=== PATIENT | female | born 1930 | race Caucasian/White ===

== ENCOUNTER 2018-04-28 11:53 | Inpatient (IN) | payer MEDICARE, OTHER ==
[2018-04-28] MEDS ORDERED: Metoprolol Tartrate 5 MG/5 ML VIAL ONE (12:57)
[2018-04-28 13:33] LABS: Mean Corpuscular HGB CONC 31.5 g/dL (32.0-36.0); Mean Corpuscular Hemoglobin 30.9 pg (27.0-31.0); Mean Corpuscular Volume 98.2 fL (78.0-98.0); Platelet Count 200 thou/uL (130-400); RBC Distribution Width 12.6 % (11.5-14.5); Red Blood Cell (RBC) Count 3.55 mill/uL (4.20-5.40)
[2018-04-28 13:52] LABS: Band 17 % (5-11); Lymphocytes 1 % (21-51); MDiff Complete? YES; Monocytes 7 % (0-10); Neutrophil 74 % (42-75); Nucleated RBC 1 % (0); Ovalocytes SLIGHT = 2-5 cells (100X) (0-1/hpf); PLT Morphology Comment Appears Adequate; Polychromasia SLIGHT = 2-3 cells (100X) (0-2/hpf)
[2018-04-28 13:55] LABS: ALT (SGPT) 8 U/L (8-55); AST (SGOT) 16 U/L (5-34); Albumin 3.3 g/dL (3.4-4.8); Alkaline Phosphatase 69 U/L (40-150); Anion Gap 13 mmol/L (10-20); BUN (Urea Nitrogen) 38 mg/dL (9.8-20.1); Bilirubin, Total 0.8 mg/dL (0.2-1.2); CK (CPK) 97 U/L (29-168); Calc. Creatinine Clearance 0 mL/min (70-130); Calcium 8.6 mg/dL (7.8-10.44); Carbon Dioxide 21 mmol/L (23-31); Chloride 100 mmol/L (98-107); Estimated GFR-MDRD 23; Globulin 2.9 g/dL (2.4-3.5); Glucose 131 mg/dL (83-110); Potassium 3.8 mmol/L (3.5-5.1); Protein, Total 6.2 g/dL (6.0-8.3); Sodium 130 mmol/L (136-145)
[2018-04-28 13:59] LABS: CKMB 1.6 ng/mL (0-6.6); Troponin I Less than 0.010 ng/mL (< 0.028)
--- NOTE | 2018-04-28 14:27 | RAD ---
CHEST 1 VIEW: HISTORY: Shortness of breath. COMPARISON: None. FINDINGS: Atherosclerosis of the aorta. Normal cardiac silhouette. There is elevation of the right hemidiaphr agm likely due to decreased lung volume. Superimposed pneumonia cannot be excluded. No pneumothorax or osseous abnormalities. IMPRESSION: 1. Elevation of the right hemidiaphragm likely due to right lower lobe pneumonia. 2. Atherosclerosis. POS: [facility]
[2018-04-28] MEDS ORDERED: Enoxaparin Sodium 80 MG/0.8 ML SYRINGE ONE (16:28)
[2018-04-28 17:16] LABS: Troponin I Less than 0.010 ng/mL (< 0.028)
[2018-04-28] MEDS ORDERED: Ondansetron ODT 4 MG TAB PO PRN (20:07)
[2018-04-28] MEDS ORDERED: Acetaminophen 500 MG TAB PO PRN (20:07)
[2018-04-28] MEDS ORDERED: Carvedilol 6.25 MG TAB PO SCH (20:15)
[2018-04-28 20:24] LABS: Troponin I 0.011 ng/mL (< 0.028)
[2018-04-28] MEDS ORDERED: Azithromycin 500 MG in Sodium Chloride 0.9% 250 ML 250 ML IVPB SCH (22:00)
[2018-04-28] MEDS: Sodium Chloride 0.9% 1,000 ML IV SCH (22:01)
[2018-04-28] MEDS: cefTRIAXone\\ROCEPHIN 2 GM in Sodium Chloride 0.9% 100 ML IVPB SCH (22:03)
[2018-04-28] MEDS: Famotidine 20 MG TAB PO SCH (22:03)
[2018-04-28 23:44] LABS: Bilirubin Small (Negative); Blood, Urine Trace (Negative); Clarity TURBID (Clear); Glucose, Urine (Dipstick) 100 mg/dL (Negative); Leukocyte Moderate (Negative); Nitrite Negative (Negative); Protein, Urine (Dipstick) 30 mg/dL (Neg-Trace); Specific Gravity, Urine 1.018 (1.002-1.036)
[2018-04-28 23:47] LABS: Bacteria/HPF None Seen HPF (None Seen); Squamous Epithelial 21-50 HPF (0-3)
[2018-04-28 23:48] LABS: Pathc Cast-AUWi Flag 15.11 (0-2.49); Yeast-AUWi Flag 88.8 (0-25.0)
[2018-04-28 23:58] LABS: Hyaline Casts/LPF 0-3 HYALINE CAST LPF (0-3 Hyaline); Other Casts/LPF None Seen LPF (0-3 Hyaline); Oval Fat Bodies/HPF None Seen HPF (None Seen); RBC/HPF 0-3 HPF (0-3); Sperm/HPF None Seen HPF (None Seen); Transitional Epithelial NONE SEEN HPF (0-3); Trichomonas/HPF None Seen HPF (None Seen); Yeast-All Forms None Seen HPF (None Seen)
[2018-04-29 00:49] LABS: Lactic Acid 1.5 mmol/L (0.5-2.2)
--- NOTE | 2018-04-29 01:31 | HP ---
DATE OF ADMISSION: 04/28/2018 PRIMARY CARE PHYSICIAN: Bia beatty. CHIEF COMPLAINT: General weakness. HISTORY OF PRESENT ILLNESS: This is an 88-year-old female, who presents to [facility] Emergency Department accompanied by her daughter, who provides a portion of the history. The romero orellana apparently was noted with worsening lower extremity weakness and difficulty ambulating as quinn elliott normally ambulates with the use of a rolling walker at baseline. The daughter noticed decreased a ppetite, chills without documented fever and increasing weakness. The patient was noted with increas ed respiratory rate at home with mild cough. The patient with a known history of asthma according to the daughter on home metered-dose inhalers. The patient apparently arrived to the [facility] in the last week in preparation for residing in the area over the next 6 months. The quinn elliott states she has received the pneumonia vaccination in the last 5 years, but has not received the fl u vaccination for this season. The patient denies any specific chronic lung conditions other than as thma, taking metered dose inhalers. The patient denies any specific exposure history, family members with similar symptoms, chest pain, unilateral weakness, difficulty with speech, nausea or vomiting. The patient denies taking any specific home remedies for her symptoms. In the emergency room, the anika armenta underwent general evaluation including chest imaging showing questionable right lower lobe inf iltrate and pneumonia. The patient was also noted with atrial fibrillation with heart rates in the 1 30s. The patient denied any prior history of irregular heartbeats or atrial fibrillation. The quinn elliott was given Lovenox 1 mg/kg subcutaneously x1 dose in addition to intravenous normal saline x500 mL and metoprolol IV 5 mg. The patient was transferred to the telemetry unit for further evaluation. PAST MEDICAL HISTORY: 1. Hypertension. 2. History of breast cancer. 3. Gout. PAST SURGICAL HISTORY: 1. Status post right partial mastectomy. 2. Status post hysterectomy. CURRENT MEDICATIONS: 1. Vitamin D3 of 1000 units p.o. daily. 2. Uloric 40 mg p.o. daily. 3. Lisinopril 10 mg p.o. daily. 4. Tramadol 50 mg p.o. daily. ALLERGIES: No known drug allergies. FAMILY HISTORY: Positive for Parkinson's disease. Sister with history of cardiac arrhythmia. SOCIAL HISTORY: Patient resides half the year in [place] and half the year in [place] living with her daughter. No current alcohol, tobacco or illicit drug use. Ambulates with use of a rolling walker. No recent falls. REVIEW OF SYSTEMS: The following complete review of systems was negative, unless otherwise mentioned in the HPI or below: CONSTITUTIONAL: Weight loss or gain, ability to conduct usual activities. SKIN: Rash, itching. EYES: Double vision, pain. ENT/MOUTH: Nose bleeding, neck stiffness, pain, tenderness. CARDIOVASCULAR: Palpitations, dyspnea on exertion, orthopnea. RESPIRATORY: Shortness of breath, wheezing, cough, hemoptysis, fever or night sweats. GASTROINTESTINAL: Poor appetite, abdominal pain, heartburn, nausea, vomiting, constipation, or diarr hea. GENITOURINARY: Urgency, frequency, dysuria, nocturia. MUSCULOSKELETAL: Pain, swelling. NEUROLOGIC/PSYCHIATRIC: Anxiety, depression. ALLERGY/IMMUNOLOGIC: Skin rash, bleeding tendency. PHYSICAL EXAMINATION: VITAL SIGNS: Currently, blood pressure 110/58, pulse 103, respiratory rate 40, temperature 97.7 degr ees Fahrenheit, O2 saturation 99% on 2 liters per minute by nasal cannula. GENERAL APPEARANCE: This is an 88-year-old female, alert and oriented x2, pleasant, respon sive, in mild respiratory distress. HEENT: Pupils are equal, round, and reactive to light and accommodation. Extraocular muscles are in tact. No scleral icterus, no conjunctival injection. Nares patent. OP is clear. Teeth in fair rep air. NECK: Supple. No cervical adenopathy, no thyromegaly, no carotid bruits, no JVD appreciated. Cervi andrea spine with full active and passive range of motion. No meningeal signs appreciated. CHEST: Lungs are clear to auscultation bilaterally. CARDIOVASCULAR: S1, S2 with irregular rate and rhythm. Tachycardia noted. No murmur noted. ABDOMEN: Obese, soft, nontender, nondistended. Bowel sounds are positive in all 4 quadrants. There is no hepatosplenomegaly, no abdominal bruits, no rebound or guarding appreciated. EXTREMITIES: Warm and dry with fair turgor. No clubbing, cyanosis or asymmetric edema appreciated. Pulses palpable distally at the dorsalis pedis, posterior tibial, and popliteal arteries bilaterally . Capillary refill less than 2 seconds. NEUROLOGIC: Cranial nerves II through XII are grossly intact. No focal or lateralizing signs apprec iated. PERTINENT LABORATORY AND X-RAY FINDINGS: Sodium 130, potassium 3.8, chloride 100, CO2 of 21, BUN 38, creatinine 2.02, estimated GFR of 23, glucose 131, calcium 8.6. LFTs within normal limits. Troponi n I negative x2. BNP 575. Albumin 3.3. CBC showed a white blood cell count of 25, hemoglobin 11, h ematocrit 35, platelet count 200 with 74% neutrophils, 17% bands. Portable chest x-ray dated 018 by my interpretation shows elevated right hemidiaphragm with questionable infiltrate in the right lung base. EKG dated 04/28/2018 by my interpretation shows atrial fibrillation with rapid ventricul ar response, heart rates in the 130s. Attenuated R waves noted in the precordial leads. Normal axis . No acute ST-T wave changes noted. ASSESSMENT AND PLAN: 1. Sepsis. The patient will be admitted to the telemetry unit. The patient meets sepsis protocol d ue to the tachycardia, tachypnea and leukocytosis. Concern for developing pneumonia in the right low er lobe. We will continue general sepsis protocol. Serial lactic acid per protocol. Continue IV fl uids with normal saline at 100 mL per hour. 2. Right lower lobe community-acquired pneumonia, suspected gram-positive cocci. The patient will b e admitted to the telemetry unit. We will initiate Rocephin 2 grams IV q.24 hours with additional Zi thromax 500 mg IV daily. DuoNeb q.4 hours. Blood cultures x2 pending. 3. New-onset atrial fibrillation with rapid ventricular response. We will continue rate control robinson sures and initiate Coreg 12.5 mg x1 now followed by b.i.d. Check 2D transthoracic echocardiogram. H old anticoagulation and assess risk factors including potential for bleeding risk in the a.m. Consul t Cardiology Service for further recommendations. 4. Acute kidney injury. Suspect multifactorial given #1. Continue intravenous normal saline at 100 mL per hour. Avoid nephrotoxic agents and contrast media. Hold lisinopril. Repeat creatinine in t he a.m. 5. Hyponatremia. Suspect multifactorial including potential dehydration. We will continue intraven ous normal saline as outlined previously and repeat sodium level in the a.m. 6. Leukocytosis with bandemia. Suspect secondarily to #1 and right lower lobe pneumonia. We will c ontinue workup as outlined previously. Repeat CBC in the a.m. 7. Prophylaxis. Sequential compression devices while in bed. Pepcid 20 mg p.o. b.i.d. 8. CODE STATUS IS FULL. Surrogate medical decision maker is the patient's daughter.
[2018-04-29 05:21] LABS: Band 25 % (5-11); Hemoglobin 10.1 g/dL (12.0-16.0); Lymphocytes 7 % (21-51); MDiff Complete? YES; Mean Corpuscular HGB CONC 31.6 g/dL (32.0-36.0); Mean Corpuscular Hemoglobin 31.4 pg (27.0-31.0); Mean Corpuscular Volume 99.2 fL (78.0-98.0); Mean Platelet Volume 7.9 fL (7.4-10.4); Metamyelocyte 1 % (0-0); Monocytes 5 % (0-10); Neutrophil 62 % (42-75); PLT Morphology Comment Appears Adequate; Platelet Count 218 thou/uL (130-400); RBC Distribution Width 12.6 % (11.5-14.5); Red Blood Cell (RBC) Count 3.22 mill/uL (4.20-5.40); White Blood Cell (WBC) Count 17.6 thou/uL (4.8-10.8)
[2018-04-29 05:29] LABS: Anion Gap 15 mmol/L (10-20); BUN (Urea Nitrogen) 46 mg/dL (9.8-20.1); Calc. Creatinine Clearance 21 mL/min (70-130); Calcium 8.4 mg/dL (7.8-10.44); Carbon Dioxide 18 mmol/L (23-31); Chloride 98 mmol/L (98-107); Estimated GFR-MDRD 21; Glucose 145 mg/dL (83-110); Magnesium 1.7 mg/dL (1.6-2.6); Potassium 4.2 mmol/L (3.5-5.1); Sodium 127 mmol/L (136-145)
[2018-04-29] MEDS ORDERED: Carvedilol 6.25 MG TAB PO SCH (08:00)
[2018-04-29] MEDS ORDERED: Lisinopril 10 MG TAB PO SCH (09:00)
[2018-04-29] MEDS: traMADol HCl 50 MG TAB PO SCH (10:26)
[2018-04-29 10:40] LABS: Actual Bicarbonate (HCO3a) 21.6 mEq/L (22-28); Base Excess (BEa) -2.7 mEq/L (-2.0 to +3.0); Calcium, Ionized 1.08 mmol/L (1.12-1.30); Carboxyhemoglobin (COHb) 0.6 gm% (0.0-3.0); Hemoglobin (Hb) 11.1 g/dL (12.0-16.0); Potassium - ABG Lab 4.17 mmol/L (3.70-5.30)
[2018-04-29 10:47] LABS: Puncture Site LRA
[2018-04-29] MEDS: Sodium Chloride 0.9% 1,000 ML IV SCH ×3 (10:58→22:26)
[2018-04-29] MEDS ORDERED: methylPREDNISolone Sod Succ/PF 125 MG/2 ML VIAL IVP SCH (11:00)
[2018-04-29] MEDS ORDERED: Furosemide 20 MG/2 ML VIAL SLOW IVP SCH (11:00)
--- NOTE | 2018-04-29 11:08 | PDOC.PN ---
- Subjective Encounter Start Date: 04/29/18 Encounter Start Time: 11:00 Subjective: f/u for sepsis, RLL PNA and hypoxic resp failure. Nsg reports increased SOB -: and some somnolence but answers questions when asked. Receiving -: Rocephin/Zithromax, blood cx with GNR. - Objective Resuscitation Status: Resuscitation Status FULL:Full Resuscitation MAR Reviewed: Yes Vital Signs & Weight: Vital Signs (12 hours) Temp Pulse Resp BP BP Pulse Ox 04/29/18 10:45 88 30 H 97 04/29/18 10:44 99.3 F 102 H 32 H 93/58 L 96 04/29/18 10:24 104/58 L 04/29/18 07:40 98.6 F 85 30 H 91/53 L 93 L 04/29/18 07:18 96 24 H 96 04/29/18 04:15 98.6 F 99 24 H 100/56 L 93 L 04/29/18 02:52 32 H 04/29/18 00:00 96 Weight Weight 174 lb 1.6 oz I&O: 04/28/18 04/29/18 04/30/18 06:59 06:59 06:59 Intake Total 600 Output Total 160 Balance 440 Result Diagrams: 04/29/18 04:32 04/29/18 04:32 Additional Labs: Accuchecks 04/28/18 11:58 POC Glucose 139 H Microbiology 04/28/18 19:47 Venous blood - Left Arm Blood Culture - Preliminary Gram Negative Ramiro 04/28/18 19:03 Venous blood - Left Hand Blood Culture - Preliminary Gram Negative Ramiro Laboratory Tests 04/28/18 04/28/18 04/28/18 13:22 13:22 13:22 WBC 25.0 H Hgb 11.0 L Band Neuts % (Manual) 17 H Bicarbonate Actual ABG pH ABG pCO2 ABG pO2 ABG O2 Sat Calc/Jared Inspired O2 Sodium 130 L Creatinine 2.02 H Lactic Acid Magnesium B-Natriuretic Peptide 574.5 H TSH 3rd Generation 04/28/18 04/29/18 04/29/18 20:35 00:15 04:32 WBC Hgb Band Neuts % (Manual) Bicarbonate Actual ABG pH ABG pCO2 ABG pO2 ABG O2 Sat Calc/Jared Inspired O2 Sodium Creatinine Lactic Acid 2.1 1.5 Magnesium 1.7 B-Natriuretic Peptide TSH 3rd Generation 04/29/18 04/29/18 04/29/18 04:32 04:32 10:27 WBC Hgb Band Neuts % (Manual) 25 H Bicarbonate Actual 21.6 L ABG pH 7.40 ABG pCO2 36.0 ABG pO2 82.0 H ABG O2 Sat Calc/Jared 96.2 Inspired O2 28 Sodium Creatinine Lactic Acid Magnesium B-Natriuretic Peptide TSH 3rd Generation 1.6995 Radiology Reviewed by me: Yes (PCXR - pending) EKG Reviewed by me: Yes (Tele - A-fib in low 100's) Phys Exam - Physical Examination awake, answers questions slowly, mod resp distress HEENT: PERRLA, sclera anicteric, oral pharynx no lesions Neck: no nodes, no JVD, supple, full ROM diminished breath sounds bilat, exp wheezing tachycardic, S1, S2 Cardiovascular: no significant murmur, no rub, gallop, irregular Gastrointestinal: soft, non-tender, no distention, positive bowel sounds Musculoskeletal: no edema, pulses present Neurological: normal sensation, moves all 4 limbs Psychiatric: A&O x 3 Skin: no rash, normal turgor, cap refill <2 seconds Deviation from normal: Smith cloudy urine, monserrat Dx/Plan (1) Sepsis Code(s): A41.9 - SEPSIS, UNSPECIFIED ORGANISM Status: Acute Comment: Gram negative rods in 2/2 blood cx, suspected urine/pulmonic source, continue Rocephin, add Levaquin, await final identification, continue sepsis protocol (2) Acute respiratory failure with hypoxia Code(s): J96.01 - ACUTE RESPIRATORY FAILURE WITH HYPOXIA Status: Acute Comment: Secondary to RLL PNA, trial BiPAP NIMV, Duonebs, add Solumedrol 125mg IV x 1 then 40mg IV q6h, Lasix 20mg IV x 1 dose (3) RLL pneumonia Code(s): J18.1 - LOBAR PNEUMONIA, UNSPECIFIED ORGANISM Status: Acute Comment : suspected gm + but gm - in 2/2 blood cx, continue Rocephin, Zithromax, add Levaquin, Duonebs, BiPAP (4) SONG (acute kidney injury) Code(s): N17.9 - ACUTE KIDNEY FAILURE, UNSPECIFIED Status: Acute Comment: Suspected due to sepsis, avoid nephrotoxic meds and limit contrast exposure, consult Nephrology today, Smith placed (5) Atrial fibrillation with RVR Code(s): I48.91 - UNSPECIFIED ATRIAL FIBRILLATION Status: Acute Comment: Low -dose Coreg, limited therapy given hypotension, Cardiology consulted, Echo pending (6) Hyponatremia Code(s): E87.1 - HYPO-OSMOLALITY AND HYPONATREMIA Status: Acute Comment: Likely multifactorial, serial monitoring - Plan plan discussed w/ family, continue antibiotics, social welfare administrator, respiratory therapy, DVT proph w/SCDs Transfer to [facility] -: Start BiPAP NIMV -: Consult Pulmonology -: Consult Nephrology -: Lasix 20mg IV x 1 dose now * Solumedrol 125mg IV x 1 dose now * Repeat PCXR * Add Levaquin 750mg IV now * AM lab: CMP, CBC * 2D echo pending Total Critical Caret Time: 35min
--- NOTE | 2018-04-29 12:25 | CON ---
DATE OF CONSULTATION: 04/29/2018 Forty-five minutes critical care time. HISTORY OF PRESENT ILLNESS: The patient is an 88-year-old female from [place] who is in town living with her daughter while her house is being repaired in [place]. She has had shortness of breath fo r well over a month, but has been worse over the last 2-3 days. She has developed a cough. She has developed severe tachypnea. She is being transferred to the [facility] for the purpose of instituting BiPA P. PAST MEDICAL HISTORY: 1. She denies any previous cardiac or pulmonary problems. 2. Hypertension. 3. History of breast cancer. 4. Gout. PAST SURGICAL HISTORY: 1. She has had a right partial mastectomy. 2. Hysterectomy. MEDICATIONS PRIOR TO ADMISSION: Vitamin D3, Uloric, lisinopril, tramadol. ALLERGIES: None. FAMILY MEDICAL HISTORY: Remarkable for Parkinson disease and cardiac arrhythmias. SOCIAL HISTORY: She smoked in her 30s and 40s, does not smoke currently. She ambulates with a walke r. Does not drink alcohol. REVIEW OF SYSTEMS: Difficult to elicit as the patient is extremely deaf. PHYSICAL EXAMINATION: VITAL SIGNS: Temperature 99.3, pulse 102, respirations 30, O2 sat 97% on 2 liters, blood pressure 93 /58. HEENT: Unremarkable. NECK: No adenopathy or JVD. LUNGS: She has crackles in both bases, left greater than right. She has decreased diaphragmatic exc ursion on the right. CARDIAC: S1, S2 irregularly irregular without murmur. ABDOMEN: Soft, nontender. EXTREMITIES: Trace edema. LABORATORY DATA: White blood count 17.6, hematocrit 31.9, platelet count 218 with 76% neutrophils, 2 5% bands, pH 7.40, pCO2 36, pO2 of 82 and that was on 2 liters. Sodium 127, potassium 4.2, chloride 98, CO2 18, BUN 46, creatinine 2.4, glucose 145. BNP level was 574. Her x-ray shows a grossly elevated right hemidiaphragm compared to the left. Unfortunately, we have no old x-rays for comparison. ASSESSMENT: 1. Sepsis syndrome - presumed pneumonia, although it is difficult to tell on the x-ray. 2. Right diaphragmatic elevation versus subpulmonic right effusion versus pulmonary infiltrate. 3. Renal insufficiency. 4. Hyponatremia. 5. Elevated BNP. PLAN: 1. The patient is moving to the IM for the purpose of BiPAP. 2. CT of the chest to get a further look at the right lower lobe area and the possible diaphragmatic elevation versus subpulmonic effusion. 3. I agree with broad spectrum IV antibiotics, but ceftriaxone and Levaquin should be adequate azith romycin would basically duplicate the Levaquin coverage. 4. Awaiting results of echo. The patient is getting a dose of Lasix this morning. If this is heart failure her diuretics will need to be intensified. 5. Code status is full per the patient's wishes. I will follow with you.
--- NOTE | 2018-04-29 12:57 | RAD ---
PORTABLE UPRIGHT CHEST ONE VIEW: History: 88-year-old female with history of respiratory failure, dyspnea, and follow up pneumonia. Comparison: 04-28-18 FINDINGS: Very poor inspiration with some right hemidiaphragm elevation. Minimal cardiomegaly. Increased markin gs in both bases. Given less inspiration, there is probably little change from the prior study. IMPRESSION: Very poor inspiratory effort with right hemidiaphragm elevation, mild vascular congestion, and minima l cardiomegaly. No new confluent process. Continued short term follow up. POS: [facility]
--- NOTE | 2018-04-29 13:35 | CON ---
DATE OF CONSULTATION: 04/29/2018 HISTORY OF PRESENT ILLNESS: The patient is an 88-year-old woman who presented with dyspnea and was noted to have a rapid irregular heart rhythm. The patient has no previous cardiac history. She was in her usual state of health when started developing increasing difficulty with shortness of breath. The patient denied having any fever. The patient was denies having any chest discomfort. The patient did not have any palpitations. PAST MEDICAL HISTORY: 1. Hypertension. 2. Diabetes mellitus. 3. Chronic renal insufficiency. 4. Gout. 5. History of breast carcinoma. PAST SURGICAL HISTORY: Mastectomy, hysterectomy and back surgery. SOCIAL HISTORY: Nonsmoker. MEDICATIONS ON ADMISSION: Lisinopril 10 daily, tramadol 50 daily, vitamin D 1000 daily. SOCIAL HISTORY: She is a nonsmoker. ALLERGIES: NEOSPORIN. REVIEW OF SYSTEMS: Ten point system noticeable for worsening memory loss and for history of several falls. PHYSICAL EXAMINATION: GENERAL: This is an obese woman. VITAL SIGNS: Blood pressure 91/53. NECK: Showed no jugular venous distention. LUNGS: Coarse breath sounds in both lung trevino. HEART: Irregular rate and rhythm, normal S1, S2. ABDOMEN: Distended. EXTREMITIES: Showed no edema. VASCULAR: Radial pulses 2+. LABORATORY DATA: White blood count 17.6, hemoglobin 10.1, hematocrit 31.9, platelets 218. Sodium is 127, potassium 4.2, chloride 98, bicarbonate 18, BUN 46, creatinine is 2.24, glucose 145. Troponin less than 0.01. Her EKG revealed atrial fibrillation with a rapid ventricular response. Chest x -ray revealed possible pneumonia in the right lower lobe. IMPRESSION: 1. Atrial fibrillation. 2. Possible pneumonia. 3. Sepsis. 4. Chronic renal insufficiency. 5. Diabetes mellitus. 6. Hypertension. 7. Dementia. 8. Obesity. This patient presents with sepsis. She has a markedly elevated white count and a left shift. The patient is being treated with IV antibiotics. From a cardiac standpoint, the patient has been treated with Coreg to control her heart rate. We will check the patient's echocardiogram. We will follow this patient with you through her hospitalization. FARTUN
--- NOTE | 2018-04-29 16:31 | ULT ---
RENAL ULTRASOUND: 04/29/18 HISTORY: Acute kidney insufficiency. COMPARISON: None. TECHNIQUE: Sagittal and transverse imaging of the kidneys. Bilaterally, no hydronephrosis. Limited evaluation of the left and right renal cortex. Right kidney measures 6.1 x 5.2 x 10.4 cm. Left kidney measures 5.9 x 4.6 x 12.1 cm. There are multiple anechoic foci in the left and right renal cortex suggesting gali l cortical cysts. Largest cyst in the right kidney measures 4.8 x 4.8 x 4.0 cm. Largest cyst in the l eft kidney measures 1.7 x 1.6 x 1.4 cm. Urinary bladder is decompressed due to Smith catheterization. IMPRESSION: 1. Limited evaluation of the cortex. Grossly, no hydronephrosis. 2. Bilateral renal cortical cysts. POS: [facility]
--- NOTE | 2018-04-29 16:43 | CT ---
CHEST CT WITHOUT CONTRAST: 04/29/18 HISTORY: Evaluate for subpulmonic effusion. COMPARISON: None. TECHNIQUE: Noncontrast CT is performed in the axial plane. Coronal reformatted images are submitted for interpre tation. FINDINGS: Limited evaluation of the mediastinal structures due to lack of IV contrast. There is atherosclerosis of a nonaneurysmal aorta. The heart size is upper normal. No significant pericardial fluid. Moderate hiatal hernia is identified. No mediastinal mass, lymphadenopathy or hematoma. The visualized upper solid organs are unremarkable. Complex cyst in the upper pole of the right kidney measuring 2 cm. Cor onal reformatted images demonstrate a consolidation of the right lower lobe with elevation of right h emidiaphragm suggesting atelectasis. Addition consolidation of the left lower lobe which may be due t o areas of atelectasis is noted. If there is concern for diaphragmatic paralysis, consider a "sniff" test. Trachea and central bronchi appear to be patent. There is a pleural based nodule on the right upper lobe measuring 6 mm. IMPRESSION: Elevation of the right hemidiaphragm which may be due to diaphragmatic paralysis. There is no evidenc e of a subpulmonic effusion. Consolidation right lower lobe is presumed to be due to atelectasis. Con supervisor waterproofing sniff test to evaluate diaphragmatic function. POS: [facility]
[2018-04-29] MEDS: Carvedilol 6.25 MG TAB PO SCH (17:37)
[2018-04-29] MEDS: cefTRIAXone\\ROCEPHIN 2 GM in Sodium Chloride 0.9% 100 ML IVPB SCH (19:41)
[2018-04-29] MEDS: Enoxaparin Sodium 80 MG/0.8 ML SYRINGE SC SCH (19:42)
[2018-04-29] MEDS: Famotidine 20 MG TAB PO SCH ×2 (19:43→20:27)
--- NOTE | 2018-04-30 01:33 | CON ---
DATE OF CONSULTATION: 04/29/2018 NEPHROLOGY CONSULTATION REASON FOR CONSULTATION: Elevated creatinine. HISTORY OF PRESENT ILLNESS: This is a very pleasant 88-year-old female, admitted for sepsis with right-sided pneumonia. The patient's prior labs are not available, but her creatinine had increased from 2-2.4 today. The patient can give no further history. PAST MEDICAL HISTORY: Significant for hypertension, breast cancer, gout, mastectomy, hysterectomy. HOME MEDICATIONS: List reviewed. HOSPITAL MEDICATIONS: Reviewed. ALLERGIES: Reviewed. SOCIAL ECONOMIC HISTORY: Reviewed. REVIEW OF SYSTEMS: Unobtainable. PHYSICAL EXAMINATION: GENERAL: The patient is mild to moderate distress. VITAL SIGNS: Afebrile, pulse 72, breathing at 16, blood pressure was 93/58. GENERAL APPEARANCE AND MENTAL STATUS: Fair. HEAD/NECK: Normocephalic. Atraumatic. EYES: EOMI. No deformity. EARS: Clear. No ulcers. NOSE: Intact. No lesions. MOUTH: Clear. No discharge. THROAT: Clear. No exudate. LUNGS: Clear. No crackles. CARDIAC: S1, S2. No rub. ABDOMEN: Benign. BS+. GENITALIA/RECTUM: Smith absent. BACK/EXTREMITIES: Edema 0+ Ulcer-. NEUROLOGICAL: Alert and motor intact. SKIN: Rash- Bruise-. LYMPHATICS: Edema- Ulcer- LABORATORY DATA: Show creatinine 2.2. ASSESSMENT AND RECOMMENDATIONS: 1. Acute kidney injury with chronic kidney disease, most likely due to acute tubular necrosis because of sepsis. Continue diuresis and blood pressure support. 2. Anemia, stable. 3. Medications based on glomerular filtration rate are appropriate. 4. Hyponatremia. 5. Respiratory failure and pneumonia. 6. Congestive heart failure. Agree with increasing the diuretic therapy. MTDD
[2018-04-30 04:23] LABS: ALT (SGPT) 8 U/L (8-55); AST (SGOT) 25 U/L (5-34); Albumin 3.1 g/dL (3.4-4.8); Alkaline Phosphatase 65 U/L (40-150); Anion Gap 17 mmol/L (10-20); BUN (Urea Nitrogen) 57 mg/dL (9.8-20.1); Bilirubin, Total 0.2 mg/dL (0.2-1.2); Calc. Creatinine Clearance 21 mL/min (70-130); Calcium 8.5 mg/dL (7.8-10.44); Carbon Dioxide 18 mmol/L (23-31); Chloride 98 mmol/L (98-107); Estimated GFR-MDRD 20; Globulin 3.4 g/dL (2.4-3.5); Glucose 168 mg/dL (83-110); Potassium 4.6 mmol/L (3.5-5.1); Protein, Total 6.5 g/dL (6.0-8.3); Sodium 128 mmol/L (136-145)
[2018-04-30 04:35] LABS: Band 2 % (5-11); Hemoglobin 10.7 g/dL (12.0-16.0); Hypochromia SLIGHT = 6-15 cells (100X) (0-5/hpf); Lymphocytes 6 % (21-51); MDiff Complete? YES; Mean Corpuscular HGB CONC 32.5 g/dL (32.0-36.0); Mean Corpuscular Hemoglobin 32.1 pg (27.0-31.0); Mean Corpuscular Volume 98.7 fL (78.0-98.0); Monocytes 1 % (0-10); Neutrophil 91 % (42-75); PLT Morphology Comment Appears Adequate; Platelet Count 204 thou/uL (130-400); RBC Distribution Width 12.5 % (11.5-14.5); Red Blood Cell (RBC) Count 3.33 mill/uL (4.20-5.40); White Blood Cell (WBC) Count 9.1 thou/uL (4.8-10.8)
--- NOTE | 2018-04-30 08:46 | PRG ---
DATE OF SERVICE: 04/30/2018 Ms. Waters is doing better. She required BiPAP for about 1 hour yesterday and then she was able to st op that. She has been on nasal cannula the remainder of the night. PHYSICAL EXAMINATION: VITAL SIGNS: Temperature 97.7, pulse 72, respirations 18, O2 sat 94% on 4 liters, blood pressure 95/ 60. HEENT: Unremarkable. NECK: No JVD. LUNGS: She has diminished breath sounds right base compared to left. CARDIAC: S1 and S2 regular. ABDOMEN: Soft. EXTREMITIES: No edema. Culture is growing out E. coli from her urine, also gram negative rods from her blood, which I assume is probably also E. coli. The echocardiogram demonstrated a normal ejection fraction with moderate to severe tricuspid regurgit ation and elevation of her right ventricular systolic pressure. LABORATORY DATA: White blood cell count 9.1, hematocrit 32.8, platelet count 204. Sodium 120, potas sium 4.6, chloride 90, CO2 18, BUN 57, creatinine 2.3, glucose 168. ASSESSMENT: 1. Escherichia coli sepsis, presumably from urinary tract infection. 2. Systemic inflammatory response. 3. 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 4. Renal insufficiency with chronic kidney disease. 5. Hyponatremia. 6. Elevated BNP. PLAN: The patient can likely be transferred back out to the telemetry unit. I would continue treatm ent of her infection with the Levaquin, ceftriaxone and wait for sensitivities. She can discontinue the BiPAP as she is not currently using it. I would decrease the dose of her methylprednisolone and hopefully wean that off in the next couple of days as I do not see any evidence of obstructive lung d isease at this time.
[2018-04-30] MEDS: Carvedilol 6.25 MG TAB PO SCH ×2 (08:57→18:27)
[2018-04-30] MEDS: traMADol HCl 50 MG TAB PO SCH (08:58)
[2018-04-30] MEDS: Febuxostat [Uloric] 40 MG PO SCH ×2 (12:54→12:55)
--- NOTE | 2018-04-30 14:41 | PDOC.PN ---
- Subjective Encounter Start Date: 04/30/18 Encounter Start Time: 14:25 Subjective: f/u for E. coli sepsis and resp failure. Doing much better today with -: no SOB and feeling stronger. Transferred out of [facility] to [facility]. - Objective Resuscitation Status: Resuscitation Status FULL:Full Resuscitation MAR Reviewed: Yes Vital Signs & Weight: Vital Signs (12 hours) Temp Pulse Pulse Pulse Resp BP BP 04/30/18 10:48 80 16 04/30/18 10:18 86 75 118/77 04/30/18 08:57 104/58 L 04/30/18 07:53 72 04/30/18 07:34 97.7 F 87 18 04/30/18 04:34 96.2 F L 80 20 BP BP Pulse Ox Pulse Ox Pulse Ox 04/30/18 10:48 04/30/18 10:18 120/83 94 L 100 04/30/18 08:57 04/30/18 07:53 04/30/18 07:34 95/60 94 L 04/30/18 04:34 110/78 97 Weight Admit Weight 174 lb 1.6 oz Weight 174 lb 1.6 oz I&O: 04/29/18 04/30/18 05/01/18 06:59 06:59 06:59 Intake Total 600 1132 Output Total 160 850 Balance 440 282 Result Diagrams: 04/30/18 03:27 04/30/18 03:27 Additional Labs: Microbiology 04/28/18 23:39 Urine cordero catheter Urine Culture - Final Escherichia coli 04/28/18 19:47 Venous blood - Left Arm Blood Culture - Preliminary Gram Negative Ramiro 04/28/18 19:47 Venous blood - Left Arm Blood Culture - Preliminary Gram Negative Ramiro 04/28/18 19:03 Venous blood - Left Hand Blood Culture - Preliminary Gram Negative Armiro 04/28/18 19:03 Venous blood - Left Hand Blood Culture - Preliminary Escherichia coli Laboratory Tests 04/28/18 04/28/18 04/28/18 13:22 13:22 13:22 WBC 25.0 H Hgb 11.0 L Band Neuts % (Manual) 17 H Bicarbonate Actual ABG pH ABG pCO2 ABG pO2 ABG O2 Sat Calc/Jared Inspired O2 Sodium 130 L Creatinine 2.02 H Lactic Acid Magnesium B-Natriuretic Peptide 574.5 H TSH 3rd Generation 04/28/18 04/29/1804/29/18 20:35 00:15 04:32 WBC Hgb Band Neuts % (Manual) Bicarbonate Actual ABG pH ABG pCO2 ABG pO2 ABG O2 Sat Calc/Jared Inspired O2 Sodium 127 L Creatinine Lactic Acid 2.1 1.5 Magnesium 1.7 B-Natriuretic Peptide TSH 3rd Generation 04/29/18 04/29/18 04/29/18 04:32 04:32 10:27 WBC 17.6 H Hgb 10.1 L Band Neuts % (Manual) 25 H Bicarbonate Actual 21.6 L ABG pH 7.40 ABG pCO2 36.0 ABG pO2 82.0 H ABG O2 Sat Calc/Jared 96.2 Inspired O2 28 Sodium Creatinine Lactic Acid Magnesium B-Natriuretic Peptide TSH 3rd Generation 1.6995 04/30/18 03:27 WBC Hgb Band Neuts % (Manual) 2 L Bicarbonate Actual ABG pH ABG pCO2 ABG pO2 ABG O2 Sat Calc/Jared Inspired O2 Sodium Creatinine Lactic Acid Magnesium B-Natriuretic Peptide TSH 3rd Generation Radiology Reviewed by me: Yes (2D echo - EF 55%, mod TR) EKG Reviewed by me: Yes (Tele - A-fib in 80's) Phys Exam - Physical Examination Constitutional: NAD HEENT: PERRLA, sclera anicteric, oral pharynx no lesions Neck: no nodes, no JVD, supple, full ROM diminished in bases Respiratory: no rales, no rhonchi S1, S2 Cardiovascular: no significant murmur, no rub, gallop, irregular Gastrointestinal: soft, non-tender, no distention, positive bowel sounds Musculoskeletal: no edema, pulses present Neurological: normal sensation, moves all 4 limbs Psychiatric: A&O x 3 Skin: no rash, normal turgor, cap refill <2 seconds Deviation from normal: Cordero with monserrat urine Dx/Plan (1) Sepsis Code(s): A41.9 - SEPSIS, UNSPECIFIED ORGANISM Status: Acute Comment: E. coli sepsis, continue Rocephin/Levaquin pending final sensitivities, improved (2) Acute respiratory failure with hypoxia Code(s): J96.01 - ACUTE RESPIRATORY FAILURE WITH HYPOXIA Status: Acute Comment: Improved, continue O2 via NC, de-escalate Solumedrol in 24h (3) RLL pneumonia Code(s): J18.1 - LOBAR PNEUMONIA, UNSPECIFIED ORGANISM Status: Suspected Comment: Suspected with concomitant elevated R hemidiaphragm, continue Levaquin/ Rocephin (4) SONG (acute kidney injury) Code(s): N17.9 - ACUTE KIDNEY FAILURE, UNSPECIFIED Status: Acute Comment: Suspected due to sepsis, avoid nephrotoxic meds and limit contrast exposure, consult Nephrology today, Cordero placed (5) Atrial fibrillation with RVR Code(s): I48.91 - UNSPECIFIED ATRIAL FIBRILLATION Status: Acute Comment: Low -dose Coreg, limited therapy given hypotension, Cardiology consulted (6) Hyponatremia Code(s): E87.1 - HYPO-OSMOLALITY AND HYPONATREMIA Status: Acute Comment: Likely multifactorial, serial monitoring, saline lock IVF's - Plan plan discussed w/ family, continue antibiotics, PT/OT, social services coordinator, respiratory therapy, out of bed/ambulate, DVT proph w/SCDs Stable overall -: Continue Solumedrol another 24h -: Saline lock IVF's -: OOB with PT -: De-escalate abx coverage pending final sensitivities * AM lab: CMP, CBC
[2018-04-30] MEDS: Sodium Chloride 0.9% 1,000 ML IV SCH (14:44)
--- NOTE | 2018-04-30 17:34 | PRG ---
DATE OF SERVICE: 04/30/2018 SUBJECTIVE: An 88-year-old female being seen for acute kidney injury. The patient denies any nausea , vomiting, or chest pain. PHYSICAL EXAMINATION: GENERAL: Patient is awake, alert. VITAL SIGNS: Afebrile, pulse 83, breathing 16, blood pressure 130/83 HEAD/NECK: Normocephalic. Atraumatic. EYES: EOMI. No deformity. EARS: Clear. No ulcers. NOSE: Intact. No lesions. MOUTH: Clear. No discharge. THROAT: Clear. No exudate. LUNGS: Clear. No crackles. CARDIAC: S1, S2. No rub. ABDOMEN: Benign. BS+. GENITALIA/RECTUM: Smith absent. BACK/EXTREMITIES: Edema 0+ Ulcer- NEUROLOGICAL: Alert and motor intact. SKIN: Rash- Bruise- LYMPHATICS: Edema- Ulcer- LABORATORY DATA: Show hemoglobin 10.7, creatinine 2.2. ASSESSMENT AND PLAN: 1. Chronic kidney disease, stage 4, stable. 2. Hypertension, stable. 3. Anemia, stable. 4. Hyponatremia, stable. No indication for dialysis. Continue diuresis.
[2018-04-30] MEDS: cefTRIAXone\\ROCEPHIN 2 GM in Sodium Chloride 0.9% 100 ML IVPB SCH (20:49)
[2018-04-30] MEDS: Enoxaparin Sodium 80 MG/0.8 ML SYRINGE SC SCH (20:50)
[2018-04-30] MEDS: Famotidine 20 MG TAB PO SCH (20:50)
[2018-05-01] MEDS: Ondansetron HCl/PF 4 MG/2 ML Vial IVP PRN ×2 (00:37→15:01)
[2018-05-01 06:26] LABS: ALT (SGPT) 8 U/L (8-55); AST (SGOT) 13 U/L (5-34); Albumin 3.1 g/dL (3.4-4.8); Alkaline Phosphatase 55 U/L (40-150); Anion Gap 15 mmol/L (10-20); BUN (Urea Nitrogen) 58 mg/dL (9.8-20.1); Bilirubin, Total 0.2 mg/dL (0.2-1.2); Calc. Creatinine Clearance 24 mL/min (70-130); Calcium 8.8 mg/dL (7.8-10.44); Carbon Dioxide 19 mmol/L (23-31); Chloride 100 mmol/L (98-107); Estimated GFR-MDRD 23; Glucose 200 mg/dL (83-110); Potassium 3.8 mmol/L (3.5-5.1); Protein, Total 6.1 g/dL (6.0-8.3); Sodium 130 mmol/L (136-145)
[2018-05-01 07:44] LABS: Band 14 % (5-11); Eosinophils 3 % (0-10); Hemoglobin 10.4 g/dL (12.0-16.0); Lymphocytes 11 % (21-51); MDiff Complete? YES; Mean Corpuscular HGB CONC 32.1 g/dL (32.0-36.0); Mean Corpuscular Hemoglobin 31.1 pg (27.0-31.0); Mean Corpuscular Volume 96.9 fL (78.0-98.0); Mean Platelet Volume 7.4 fL (7.4-10.4); Monocytes 6 % (0-10); Neutrophil 65 % (42-75); Platelet Count 236 thou/uL (130-400); RBC Distribution Width 12.4 % (11.5-14.5); RBC Morphology Normal; Reactive Lymphocytes 1 % (0-10); Red Blood Cell (RBC) Count 3.34 mill/uL (4.20-5.40)
[2018-05-01] MEDS: traMADol HCl 50 MG TAB PO SCH (08:42)
[2018-05-01] MEDS: Carvedilol 6.25 MG TAB PO SCH ×2 (08:43→17:49)
--- NOTE | 2018-05-01 08:52 | PRG ---
DATE OF SERVICE: 05/01/2018 SUBJECTIVE: The patient is doing reasonably well. She seems to have dementia and has a hard time re membering becoming from 1 day to the next. OBJECTIVE: VITAL SIGNS: Temperature is 97.9, pulse 81, respiration 16, O2 sat 100% on 3 liters, blood pressure 140/77. A 24-hour intake 1132, output 850. HEENT: Unremarkable. NECK: No JVD. LUNGS: Fairly clear. CARDIAC: S1 and S2 regular. ABDOMEN: Soft. EXTREMITIES: No edema. LABORATORY DATA: White blood cell count 13, hematocrit 32.4, platelet count 236. Sodium 130, potass ium 3.8, chloride 100, CO2 19, BUN 58, creatinine 2.0, glucose 200. ASSESSMENT: 1. Escherichia coli sepsis. 2. Systemic inflammatory response. 3. 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 4. Renal insufficiency. PLAN: 1. Continue antibiotics. We would consider stopping the Levaquin since the organism is sensitive to ceftriaxone and Levaquin has some association with altered mental status. 2. Increase activity as tolerated. 3. I will go ahead and stop the steroids as I do not see any utility in continuing those at this [facility].
--- NOTE | 2018-05-01 09:04 | PRG ---
DATE OF SERVICE: 05/01/2018 SUBJECTIVE: This is an 88-year-old female being seen for acute kidney injury. The patient denies an y nausea, vomiting or chest pain. PHYSICAL EXAMINATION: GENERAL: Patient is awake, alert. VITAL SIGNS: Afebrile, pulse 80, breathing 16, blood pressure 140/70. OBJECTIVE: See above. Awake, alert, in no acute distress. GENERAL APPEARANCE AND MENTAL STATUS: Fair. HEAD/NECK: Normocephalic. Atraumatic. EYES: EOMI. No deformity. EARS: Clear. No ulcers. NOSE: Intact. No lesions. MOUTH: Clear. No discharge. THROAT: Clear. No exudate. LUNGS: Clear. No crackles. CARDIAC: S1, S2. No rub. ABDOMEN: Benign. BS+. GENITALIA/RECTUM: Smith absent. BACK/EXTREMITIES: Edema 0+ Ulcer- NEUROLOGICAL: Alert and motor intact. SKIN: Rash- Bruise- LYMPHATICS: Edema- Ulcer- LABORATORY: Hemoglobin 10.4, creatinine 2.0. ASSESSMENT AND RECOMMENDATIONS: 1. Acute kidney injury with chronic kidney disease, stage 4, improved. 2. Hypertension, stable. 3. Anemia, stable. 4. Medication based on glomerular filtration rate are appropriate. 5. Hypoalbuminemia; recommend increased protein intake. 6. Hyponatremia, improved. No indication for dialysis. The patient has chronic kidney disease. I will follow this patient closely.
[2018-05-01 11:23] LABS: Hemoglobin A1c 5.9 % (4.0-6.0)
--- NOTE | 2018-05-01 18:03 | CT ---
NONCONTRAST CT ABDOMEN AND PELVIS 05/01/18 HISTORY: Urosepsis. COMPARISON: None available. FINDINGS: Calcified mediastinal and hilar lymph nodes are seen with calcified granulomata in the liver and sple en as well as at the right lung base. There is volume loss present at the right lung base. A few punc strickland less than 4 mm pulmonary nodules seen at the right lateral costophrenic angle of the right lung base. Surgical clips are seen in the right axilla. Multilevel degenerative changes are seen in the spine. There is osteopenia. Postsurgical changes of the lower lumbar spine are noted. The heart is borderline enlarged. Small hiatal hernia is present. The pancreas and bilateral adrenal glands demonstrate a grossly normal nonenhanced CT appearance. There are hyper and hypodense cystic renal lesions involving each kidney which may be related to bila teral renal cysts and Bosniak type II renal cystic lesions. The largest hypodense lesion inferior warner e right kidney does demonstrate fluid attenuation and measures approximately 4.9 cm. Calcifications s een at the margin of a hypodense lesion in the inferior pole right kidney more laterally. No renal or ureteral calculi are seen bilaterally, and there is no evidence of hydronephrosis. Smith catheter is present in a decompressed urinary bladder. Innumerable colic diverticula are seen within the descending and sigmoid colon without CT evidence of diverticulitis. The appendix is not visualized, but no secondary signs are seen to suggest appendicitis. There is evidence of hysterectomy. No free fluid or fluid collection is seen in the abdomen or pelvis and there is no evidence of lympha denopathy. A duodenal diverticulum is seen involving the proximal aspect of the third portion of the duodenum. IMPRESSION: 1. No acute findings are seen in the abdomen or pelvis. 2. Borderline cardiomegaly. 3. Several tiny less than 4 mm pulmonary nodules right lung base. 4. Hiatal hernia with fundus of the stomach above the level of the hemidiaphragms. 5. Hypo and hyperdense bilateral cystic renal lesions likely related to bilateral renal cysts an d Bosniak type II renal cystic lesions. Followup ultrasound may be beneficial for further evaluation on a nonemergent basis. 6. Colonic diverticulosis. 7. Hysterectomy. 8. Remainder of the incidental findings are as described above. POS: [facility]
--- NOTE | 2018-05-01 20:28 | PDOC.PN ---
- Subjective Encounter Start Date: 05/01/18 Encounter Start Time: 10:30 Patient seen and examined for Sepsis. No new complaints. No overnight events - Objective Resuscitation Status: Resuscitation Status FULL:Full Resuscitation MAR Reviewed: Yes Vital Signs & Weight: Vital Signs (12 hours) Temp Pulse Resp BP BP Pulse Ox 05/01/18 18:37 79 16 99 05/01/18 17:49 137/80 05/01/18 15:08 97.9 F 81 18 116/70 95 05/01/18 13:56 80 14 05/01/18 11:55 97.5 F L 85 18 104/69 97 05/01/18 10:29 80 14 Weight Admit Weight 174 lb 1.6 oz Weight 174 lb 1.6 oz I&O: 04/30/18 05/01/18 05/02/18 06:59 06:59 06:59 Intake Total 1132 340 800 Output Total 850 850 650 Balance 282 -510 150 Result Diagrams: 05/01/18 05:34 05/01/18 05:34 EKG Reviewed by me: Yes (Tele Afib) Phys Exam - Physical Examination Constitutional: NAD Respiratory: no wheezing, no rales Cardiovascular: no rub, irregular Gastrointestinal: soft, non-tender, positive bowel sounds Musculoskeletal: no edema Neurological: moves all 4 limbs Dx/Plan - Plan DVT proph w/SCDs IMPRESSION: 1. Sepsis with acute organ dysfunction due to E coli UTI/E coli bacteriuria 2. Afib with RVR - rate controlled 3. Hyponatremia 4. Rt diaphragm paralysis 5. Obesity BMI 34/CKD 4/ Other issues per previous notes PLAN: Cont Atbx Anticoag started Cont Coreg DC planning Cont current meds as below Review of Systems - Review of Systems Respiratory: negative: Cough, Dry, Shortness of Breath, Hemoptysis, SOB with Excertion, Pleuritic Pain, Sputum, Wheezing Cardiovascular: negative: chest pain, palpitations, orthopnea, paroxysmal nocturnal dyspnea, edema, light headedness, other - Medications/Allergies Allergies/Adverse Reactions: Allergies Allergy/AdvReac Type Severity Reaction Status Date / Time benzalkonium chloride Allergy Verified 04/29/18 07:49 [From Neosporin Julian To Go] pramoxine Allergy Verified 04/29/18 07:49 [From Neosporin Julian To Go] Medications: Current Medications Acetaminophen (Tylenol) 1,000 mg PO Q6H PRN PRN Reason: Headache/Fever or Mild Pain Albuterol/Ipratropium (Duoneb) 3 ml NEB [id number]-HQ [facility] Last Admin: 05/01/18 18:37 Dose: 3 ml Apixaban (Eliquis) 2.5 mg PO BID [facility] Carvedilol (Coreg) 6.25 mg PO BID-WM [facility] Last Admin: 05/01/18 17:49 Dose: 6.25 mg Cholecalciferol (Vitamin D3) 1,000 units PO DAILY [facility] Last Admin: 05/01/18 08:44 Dose: 1,000 units Famotidine (Pepcid) 20 mg PO QPM [facility] Last Admin: 04/30/18 20:50 Dose: 20 mg Ceftriaxone Sodium 2 gm/ (Sodium Chloride) 100 mls @ 200 mls/hr IVPB Q24HR [facility] Last Admin: 04/30/18 20:49 Dose: 100 mls Ondansetron HCl (Zofran Odt) 4 mg PO Q6H PRN PRN Reason: Nausea/Vomiting Last Admin: 04/29/18 15:28 Dose: 4 mg Ondansetron HCl (Zofran) 4 mg IVP Q6H PRN PRN Reason: Nausea/Vomiting Last Admin: 05/01/18 15:01 Dose: 4 mg Sodium Chloride (Flush - Normal Saline) 10 ml IVF Q12HR [facility] Last Admin: 05/01/18 08:44 Dose: 10 ml Sodium Chloride (Flush - Normal Saline) 10 ml IVF PRN PRN PRN Reason: Saline Flush Tramadol HCl (Ultram) 50 mg PO DAILY [facility] Last Admin: 05/01/18 08:42 Dose: 50 mg
[2018-05-01] MEDS: Apixaban 2.5 MG TAB PO SCH (21:18)
[2018-05-01] MEDS: cefTRIAXone\\ROCEPHIN 2 GM in Sodium Chloride 0.9% 100 ML IVPB SCH (21:18)
[2018-05-01] MEDS: Senokot S 8.6-50 MG TAB PO SCH (21:19)
[2018-05-01] MEDS: Famotidine 20 MG TAB PO SCH (21:19)
--- NOTE | 2018-05-01 21:22 | CON ---
DATE OF CONSULTATION: 05/01/2018 REASON FOR CONSULTATION: Bacteremia. HISTORY OF PRESENT ILLNESS: An 88-year-old patient admitted with a history of hypertension, gout, wh o developed anorexia, chills, weakness, tachypnea, mild cough. The patient is visiting this area and had been living in [place] with her siblings and daughters and came to visit family members. No he adaches, no visual symptoms. No dyspnea or chest pain. Initial findings include a possible right lo wer lobe infiltrate, tachycardia with atrial fibrillation. The patient was given Lovenox, metoprolol IV 5 mg. Initial laboratory findings included a white cell count 25,000, hemoglobin 11, platelets 2 00 with 74% neutrophils, 17% bands, pH 7.4, pCO2 of 36, pO2 of 82, sodium 127, creatinine 2.24, gluco se 145. Liver profile was normal. Albumin 3.1. Urinalysis with greater than 50 wbc's and 30 of pro tein. The cultures have yielded E. coli with a broad susceptibility profile in the urine and 2 sets of blood cultures. The patient had an echocardiogram which was not particularly remarkable except fo r tricuspid regurg, elevated right ventricular pressure. CT of chest was done which showed elevation of hemidiaphragm on the right side, some atelectases associated with it as well. Renal ultrasound w ith no hydronephrosis, renal cortical cysts. Currently, patient is lying on her right lateral decubi tus. She is awake, moderate hearing impairment. One of her daughters is in the room with her. She denies any headaches, shortness of breath, no abdominal pain or genitourinary symptoms. No back pain , no sputum production. PAST MEDICAL HISTORY: Includes hypertension, breast cancer in remission, gout, prior UTIs she does n ot recall exactly when. She must have some element of cognitive dysfunction which probably is chroni c. PAST SURGICAL HISTORY: Mastectomy, hysterectomy. MEDICATION LIST: Currently receiving Tylenol, DuoNeb, Eliquis, Coreg, ceftriaxone, vitamin D, Pepcid , Zofran, Ultram. ALLERGIES: Includes PRAMOXINE and BENZALKONIUM CHLORIDE. PHYSICAL EXAMINATION: VITAL SIGNS: She has been afebrile since admission, blood pressure 116/70, pulse 81, respirations 18 , O2 sat 95% on 2 liters nasal cannula. SKIN: Not remarkable. Patient has a peripheral IV access. She is voiding with a Smith catheter wit h clear urine noticed in the Smith. No lymphadenopathy. No areas of skin breakdown. HEENT: Ocular movements are conjugate. Sclerae white. Oral cavity is not remarkable. NECK: Supple. LUNGS: With symmetric clear breath sounds. HEART: S1, S2, regular rate with a soft aortic murmur. ABDOMEN: Slightly distended, but not tender. No ascites. No bladder distention. 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 Pulses 1+ in dorsalis pedis, 1+ pretibial edema. She moves extremities diffusely weak. NEUROLOGIC: Awake, does not appear in distress. A little bit disoriented. Hearing impairment is si gnificant which hinders communication. LABORATORY DATA: Latest white cell count 13,000, hemoglobin 10, platelets 236 with 65% neutrophils a nd 14% bands and creatinine is 2.02, which seems to be her baseline. Albumin 3.1, globulin 2.0. ASSESSMENT: 1. Some element of cognitive dysfunction. 2. Breast cancer in remission. 3. Urosepsis with broadly susceptible Escherichia coli. DISCUSSION: Patient has cystitis with pyelonephritis and bacteremia from the invasive UTI. Once cli nical improvement has firmed then transition to oral quinolone for discharge planning, treat for appr oximately total 2 weeks, verify proper postvoid residual once Smith catheter is removed. It does not appear to have any urological issues, although ultrasound sometimes may miss stones and significant obstruction. We will get a CT stone protocol to just make sure that we are not missing that.
[2018-05-02 06:29] LABS: Anion Gap 13 mmol/L (10-20); BUN (Urea Nitrogen) 58 mg/dL (9.8-20.1); Calc. Creatinine Clearance 24 mL/min (70-130); Calcium 8.7 mg/dL (7.8-10.44); Carbon Dioxide 23 mmol/L (23-31); Chloride 99 mmol/L (98-107); Estimated GFR-MDRD 23; Glucose 206 mg/dL (83-110); Magnesium 1.8 mg/dL (1.6-2.6); Potassium 3.5 mmol/L (3.5-5.1); Sodium 131 mmol/L (136-145)
[2018-05-02 06:35] LABS: Hemoglobin 10.5 g/dL (12.0-16.0); Mean Corpuscular HGB CONC 32.5 g/dL (32.0-36.0); Mean Corpuscular Hemoglobin 31.4 pg (27.0-31.0); Mean Corpuscular Volume 96.4 fL (78.0-98.0); Mean Platelet Volume 7.2 fL (7.4-10.4); Platelet Count 251 thou/uL (130-400); RBC Distribution Width 12.5 % (11.5-14.5); Red Blood Cell (RBC) Count 3.34 mill/uL (4.20-5.40); White Blood Cell (WBC) Count 16.2 thou/uL (4.8-10.8)
--- NOTE | 2018-05-02 08:42 | PRG ---
DATE OF SERVICE: 05/02/2018 SUBJECTIVE: The patient is doing better, had no acute complaints this morning. PHYSICAL EXAMINATION: VITAL SIGNS: On exam, temperature 97.9, pulse 65, respirations 12, O2 sat 95% on room air, blood pre ssure 157/84. HEENT: Unremarkable. NECK: No JVD. LUNGS: Slightly diminished breath sounds in right base, left side clear. CARDIAC: S1 and S2, regular. ABDOMEN: Soft. EXTREMITIES: No edema. LABORATORY DATA: Sodium 131, potassium 3.5, chloride 99, CO2 of 23, BUN 58, creatinine 2.0, glucose 206. White blood cell count 16.2, hematocrit 32.2, platelet count 251. ASSESSMENT: 1. Urosepsis with bacteremia. 2. Status post transient acute respiratory failure. PLAN: This patient can be transferred out to the medical floor. Smith can be discontinued. Hopeful ly, we can increase her activity.
[2018-05-02] MEDS: Senokot S 8.6-50 MG TAB PO SCH ×2 (08:55→21:33)
[2018-05-02] MEDS: Apixaban 2.5 MG TAB PO SCH ×2 (08:55→21:34)
[2018-05-02] MEDS: Carvedilol 6.25 MG TAB PO SCH ×2 (08:55→17:44)
[2018-05-02] MEDS: traMADol HCl 50 MG TAB PO SCH (08:56)
[2018-05-02] MEDS: Polyethylene Glycol 3350 17 GM Packet PO SCH (08:59)
[2018-05-02 09:06] LABS: Band 27 % (5-11); Lymphocytes 5 % (21-51); MDiff Complete? YES; Monocytes 3 % (0-10); Myelocyte 1 % (0-0); Neutrophil 63 % (42-75); RBC Morphology Normal; Reactive Lymphocytes 1 % (0-10)
--- NOTE | 2018-05-02 10:58 | PRG ---
DATE OF SERVICE: 05/02/2018 SUBJECTIVE: This is an 88-year-old female being seen for acute kidney injury. The patient denies an y nausea, vomiting, or chest pain. PHYSICAL EXAMINATION: GENERAL: Patient is awake, alert. VITAL SIGNS: Afebrile, pulse 80, breathing at 16, blood pressure 113/58. HEAD/NECK: Normocephalic. Atraumatic. EYES: EOMI. No deformity. EARS: Clear. No ulcers. NOSE: Intact. No lesions. MOUTH: Clear. No discharge. THROAT: Clear. No exudate. LUNGS: Clear. No crackles. CARDIAC: S1, S2. No rub. ABDOMEN: Benign. BS+. GENITALIA/RECTUM: Smith absent. BACK/EXTREMITIES: Edema 0+ Ulcer- NEUROLOGICAL: Alert and motor intact. SKIN: Rash- Bruise- LYMPHATICS: Edema- Ulcer- LABORATORY DATA: Show hemoglobin 10.5 and creatinine 2.0. ASSESSMENT AND RECOMMENDATIONS: 1. Acute kidney injury with chronic kidney disease, improved. 2. Chronic kidney disease stage 4, stable. 3. Hypertension, stable. 4. Anemia, stable. 5. ATN improved. No indication for dialysis. I will sign off on this patient. Please reconsult as needed.
--- NOTE | 2018-05-02 19:16 | PDOC.PN ---
- Subjective Encounter Start Date: 05/02/18 Encounter Start Time: 14:30 Patient seen and examined for Sepsis. No new complaints. No overnight events - Objective Resuscitation Status: Resuscitation Status FULL:Full Resuscitation MAR Reviewed: Yes Vital Signs & Weight: Vital Signs (12 hours) Temp Pulse Pulse Resp BP BP BP 05/02/18 18:28 83 14 05/02/18 17:44 122/70 05/02/18 17:00 97.6 F 83 16 122/70 05/02/18 15:21 84 16 05/02/18 13:14 84 125/75 05/02/18 11:24 64 16 05/02/18 11:00 97.8 F 84 18 05/02/18 09:36 05/02/18 08:55 113/58 L 05/02/18 08:49 97.8 F 80 18 BP BP Pulse Ox 05/02/18 18:28 90 L 05/02/18 17:44 05/02/18 17:00 94 L 05/02/18 15:21 05/02/18 13:14 05/02/18 11:24 05/02/18 11:00 129/88 92 L 05/02/18 09:36 92 L 05/02/18 08:55 05/02/18 08:49 113/58 L 98 Weight Admit Weight 174 lb 1.6 oz Weight 174 lb 1.6 oz I&O: 05/01/18 05/02/18 05/03/18 06:59 06:59 06:59 Intake Total 340 1000 1000 Output Total 850 1150 175 Balance -510 -150 825 Result Diagrams: 05/06/18 04:46 05/06/18 04:46 EKG Reviewed by me: Yes (Tele Afib earlier) Phys Exam - Physical Examination Constitutional: NAD Respiratory: no wheezing, no rhonchi Cardiovascular: no rub, irregular Gastrointestinal: soft, non-tender, positive bowel sounds Musculoskeletal: no edema Neurological: moves all 4 limbs Dx/Plan - Plan IMPRESSION: 1. Sepsis with acute organ dysfunction due to E coli UTI/E coli E coli bacteremia 2. Afib with RVR - rate controlled, on Eliquis 3. Hyponatremia 4. Rt diaphragm paralysis 5. Obesity BMI 34/SONG on CKD 4/ Impaired glucose tolerance - A1c 5.9/ Transient resp failure - resolved/Other issues per previous notes PLAN: Cont Ceftriaxone Cont Coreg/Eliquis Cont current meds as below ACEI on hold due to SONG DC planning AM labs Change Nebs to PRN Smith lunad Review of Systems - Review of Systems Respiratory: negative: Cough, Dry, Shortness of Breath, Hemoptysis, SOB with Excertion, Pleuritic Pain, Sputum, Wheezing Cardiovascular: negative: chest pain, palpitations, orthopnea, paroxysmal nocturnal dyspnea, edema, light headedness, other - Medications/Allergies Allergies/Adverse Reactions: Allergies Allergy/AdvReac Type Severity Reaction Status Date / Time benzalkonium chloride Allergy Verified 04/29/18 07:49 [From Neosporin Julian To Go] pramoxine Allergy Verified 04/29/18 07:49 [From Neosporin Julian To Go] Medications: Current Medications Acetaminophen (Tylenol) 1,000 mg PO Q6H PRN PRN Reason: Headache/Fever or Mild Pain Albuterol/Ipratropium (Duoneb) 3 ml NEB [id number] [facility] Last Admin: 05/02/18 18:28 Dose: 3 ml Apixaban (Eliquis) 2.5 mg PO BID [facility] Last Admin: 05/02/18 08:55 Dose: 2.5 mg Carvedilol (Coreg) 6.25 mg PO BID-WM [facility] Last Admin: 05/02/18 17:44 Dose: 6.25 mg Cholecalciferol (Vitamin D3) 1,000 units PO DAILY [facility] Last Admin: 05/02/18 08:55 Dose: 1,000 units Famotidine (Pepcid) 20 mg PO QPM [facility] Last Admin: 05/01/18 21:19 Dose: 20 mg Ceftriaxone Sodium 2 gm/ (Sodium Chloride) 100 mls @ 200 mls/hr IVPB Q24HR [facility] Last Admin: 05/01/18 21:18 Dose: 100 mls Ondansetron HCl (Zofran Odt) 4 mg PO Q6H PRN PRN Reason: Nausea/Vomiting Last Admin: 04/29/18 15:28 Dose: 4 mg Ondansetron HCl (Zofran) 4 mg IVP Q6H PRN PRN Reason: Nausea/Vomiting Last Admin: 05/01/18 15:01 Dose: 4 mg Polyethylene Glycol (Miralax) 17 gm PO DAILY [facility] Last Admin: 05/02/18 08:59 Dose: 17 gm Senna/Docusate Sodium (Senokot S) 1 tab PO BID [facility] Last Admin: 05/02/18 08:55 Dose: 1 tab Sodium Chloride (Flush - Normal Saline) 10 ml IVF Q12HR [facility] Last Admin: 05/02/18 08:56 Dose: 10 ml Sodium Chloride (Flush - Normal Saline) 10 ml IVF PRN PRN PRN Reason: Saline Flush Tramadol HCl (Ultram) 50 mg PO DAILY [facility] Last Admin: 05/02/18 08:56 Dose: 50 mg
[2018-05-02] MEDS: cefTRIAXone\\ROCEPHIN 2 GM in Sodium Chloride 0.9% 100 ML IVPB SCH (20:32)
[2018-05-02] MEDS: Famotidine 20 MG TAB PO SCH (21:33)
[2018-05-03] MEDS ORDERED: traMADol HCl 50 MG TAB PO SCH (00:15)
[2018-05-03] MEDS ORDERED: Milk Of Magnesia 30 ML UDCUP PO PRN (03:57)
[2018-05-03] MEDS: Ondansetron HCl/PF 4 MG/2 ML Vial IVP PRN (04:39)
[2018-05-03 06:11] LABS: Anion Gap 11 mmol/L (10-20); BUN (Urea Nitrogen) 53 mg/dL (9.8-20.1); Calc. Creatinine Clearance 29 mL/min (70-130); Calcium 8.6 mg/dL (7.8-10.44); Carbon Dioxide 23 mmol/L (23-31); Chloride 102 mmol/L (98-107); Estimated GFR-MDRD 29; Glucose 128 mg/dL (83-110); Potassium 3.5 mmol/L (3.5-5.1); Sodium 132 mmol/L (136-145)
[2018-05-03] MEDS ORDERED: Lorazepam 2 MG/ML VIAL SLOW IVP PRN (07:14)
[2018-05-03 07:49] LABS: Band 12 % (5-11); Eosinophils 2 % (0-10); Hemoglobin 10.9 g/dL (12.0-16.0); Lymphocytes 8 % (21-51); MDiff Complete? YES; Mean Corpuscular HGB CONC 32.8 g/dL (32.0-36.0); Mean Corpuscular Hemoglobin 31.6 pg (27.0-31.0); Mean Corpuscular Volume 96.3 fL (78.0-98.0); Mean Platelet Volume 6.9 fL (7.4-10.4); Monocytes 7 % (0-10); Neutrophil 71 % (42-75); Platelet Count 253 thou/uL (130-400); RBC Distribution Width 12.6 % (11.5-14.5); Red Blood Cell (RBC) Count 3.45 mill/uL (4.20-5.40); White Blood Cell (WBC) Count 15.4 thou/uL (4.8-10.8)
[2018-05-03] MEDS: Senokot S 8.6-50 MG TAB PO SCH ×3 (07:56→21:27)
[2018-05-03] MEDS: Carvedilol 6.25 MG TAB PO SCH ×3 (07:56→18:31)
[2018-05-03] MEDS: traMADol HCl 50 MG TAB PO SCH (07:57)
[2018-05-03] MEDS: Polyethylene Glycol 3350 17 GM Packet PO SCH ×2 (07:58→09:32)
[2018-05-03] MEDS ORDERED: traMADol HCl 50 MG TAB PO PRN (08:13)
--- NOTE | 2018-05-03 09:05 | RAD ---
PORTABLE CHEST ONE VIEW: Date: 05-03-18 Time: 8:04 a.m. History: Shortness of breath, pneumonia. FINDINGS: Comparison made with exam of 04-29-18. There is continued elevation of the right hemidiaphragm with adjacent infiltrates/atelectatic change. The heart size is stable. No pneumothoraces are seen. There are post op changes in the right maxilla . IMPRESSION: Stable exam. POS: [facility]
[2018-05-03] MEDS: Apixaban 2.5 MG TAB PO SCH ×2 (09:23→21:27)
[2018-05-03] MEDS ORDERED: Lorazepam 2 MG/ML VIAL SLOW IVP SCH ×3 (10:00→11:15)
[2018-05-03] MEDS: Haloperidol Lactate 5 MG/ML VIAL ONE (11:20)
[2018-05-03] MEDS: Haloperidol Lactate 5 MG/ML VIAL SLOW IVP SCH ×2 (11:32→12:21)
[2018-05-03] MEDS ORDERED: Haloperidol Lactate 5 MG/ML VIAL SLOW IVP PRN (11:35)
--- NOTE | 2018-05-03 12:09 | PDOC.PN ---
- Subjective Encounter Start Date: 05/03/18 Encounter Start Time: 12:07 Patient seen and examined for Encephalopathy/Sepsis. Code laurita called for worsening agitation with hypoxia. Agitation started around 4 am. No other overnight events. - Objective Resuscitation Status: Resuscitation Status DNR:Do Not Resuscitate MAR Reviewed: Yes Vital Signs & Weight: Vital Signs (12 hours) Temp Pulse Resp BP BP Pulse Ox 05/03/18 10:50 86 16 05/03/18 09:32 122/70 05/03/18 08:00 97.3 F L 66 18 126/68 97 05/03/18 04:55 72 18 113/66 89 L 05/03/18 04:42 82 20 166/91 H 94 L 05/03/18 04:00 97.6 F 87 20 114/75 96 Weight Admit Weight 174 lb 1.6 oz Weight 174 lb 1.6 oz I&O: 05/02/18 05/03/18 05/04/18 06:59 06:59 06:59 Intake Total 1000 1632 Output Total 1150 175 Balance -150 1457 Result Diagrams: 05/06/18 04:46 05/06/18 04:46 Radiology Reviewed by me: Yes (CXR - no new changes) Phys Exam - Physical Examination Agitation + Respiratory: no wheezing, no rhonchi Cardiovascular: RRR, no rub Gastrointestinal: soft, non-tender, positive bowel sounds Musculoskeletal: no edema Neurological: moves all 4 limbs Confused/not following commands Dx/Plan - Plan plan discussed w/ family IMPRESSION: 1. Toxic Metabolic Encephalopathy 2. Sepsis with acute organ dysfunction due to E coli UTI/E coli E coli bacteremia 3. Afib with RVR - rate controlled, on Eliquis/Coreg 4. Hyponatremia - improving 5. 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 Obesity BMI 34/ Rt diaphragm paralysis/ Impaired glucose tolerance - A1c 5.9 / Transient resp failure - resolved/Other issues per previous notes PLAN: Add Haldol for agitation DNR - confirmed with both daughters Palliative care input appreciated Will cont to monitor in Oncology Cont Ceftriaxone/Coreg/Eliquis Cont current meds as below Risk of Haldol d/w Larissa - she stated understanding Cont Nebs Add IVF AM labs Smith Review of Systems - Review of Systems Other: Cannot obtain due to current mentation. - Medications/Allergies Allergies/Adverse Reactions: Allergies Allergy/AdvReac Type Severity Reaction Status Date / Time benzalkonium chloride Allergy Verified 04/29/18 07:49 [From Neosporin Julian To Go] pramoxine Allergy Verified 04/29/18 07:49 [From Neosporin Julian To Go] Medications: Current Medications Acetaminophen (Tylenol) 1,000 mg PO Q6H PRN PRN Reason: Headache/Fever or Mild Pain Albuterol/Ipratropium (Duoneb) 3 ml NEB Q4H PRN PRN Reason: SOB &/or Wheezing Albuterol/Ipratropium (Duoneb) 3 ml NEB [id number] [facility] Last Admin: 05/03/18 11:45 Dose: Not Given Apixaban (Eliquis) 2.5 mg PO BID [facility] Last Admin: 05/03/18 09:23 Dose: Not Given Carvedilol (Coreg) 6.25 mg PO BID-WM [facility] Last Admin: 05/03/18 09:32 Dose: Not Given Cholecalciferol (Vitamin D3) 1,000 units PO DAILY [facility] Last Admin: 05/03/18 09:33 Dose: Not Given Famotidine (Pepcid) 20 mg PO QPM [facility] Last Admin: 05/02/18 21:33 Dose: 20 mg Haloperidol Lactate (Haldol) 1 mg SLOW IVP NOW [facility] Stop: 05/03/18 13:30 Haloperidol Lactate (Haldol) 0.5 mg SLOW IVP Q4H PRN PRN Reason: Agitation Ceftriaxone Sodium 2 gm/ (Sodium Chloride) 100 mls @ 200 mls/hr IVPB Q24HR [facility] Last Admin: 05/02/18 20:32 Dose: 100 mls Potassium Chloride/Dextrose/Sod Cl (D5 0.9% Ns W/ 20 Meq Kcl) 1,000 mls @ 75 mls/hr IV .[id number] [facility] Lorazepam (Ativan) 0.25 mg SLOW IVP Q6H PRN PRN Reason: Anxiety/Agitation Last Admin: 05/03/18 07:53 Dose: 0.25 mg Lorazepam (Ativan) 0.25 mg SLOW IVP NOW [facility] Stop: 05/03/18 13:00 Lorazepam (Ativan) 0.25 mg SLOW IVP NOW [facility] Stop: 05/03/18 13:15 Magnesium Hydroxide (Milk Of Magnesium) 30 ml PO DAILYPRN PRN PRN Reason: Constipation Last Admin: 05/03/18 04:18 Dose: 30 ml Ondansetron HCl (Zofran Odt) 4 mg PO Q6H PRN PRN Reason: Nausea/Vomiting Last Admin: 04/29/18 15:28 Dose: 4 mg Ondansetron HCl (Zofran) 4 mg IVP Q6H PRN PRN Reason: Nausea/Vomiting Last Admin: 05/03/18 04:39 Dose: 4 mg Polyethylene Glycol (Miralax) 17 gm PO DAILY [facility] Last Admin: 05/03/18 09:32 Dose: Not Given Senna/Docusate Sodium (Senokot S) 1 tab PO BID [facility] Last Admin: 05/03/18 09:32 Dose: Not Given Sodium Chloride (Flush - Normal Saline) 10 ml IVF Q12HR [facility] Last Admin: 05/03/18 07:54 Dose: 10 ml Sodium Chloride (Flush - Normal Saline) 10 ml IVF PRN PRN PRN Reason: Saline Flush Last Admin: 05/03/18 04:39 Dose: 10 ml Tramadol HCl (Ultram) 50 mg PO DAILY PRN PRN Reason: Pain
[2018-05-03] MEDS ORDERED: Haloperidol Lactate 5 MG/ML VIAL SLOW IVP SCH ×3 (12:15→14:45)
[2018-05-03] MEDS: D5 0.9% NS w/ 20 mEq KCl 1,000 ML IV SCH ×2 (12:51→18:31)
--- NOTE | 2018-05-03 16:13 | EKG ---
Test Reason : Blood Pressure : / mmHG Vent. Rate : 138 BPM Atrial Rate : 170 BPM P-R Int : 000 ms QRS Dur : 070 ms QT Int : 238 ms P-R-T Axes : 000 -03 156 degrees QTc Int : 360 ms Atrial fibrillation with rapid ventricular response Nonspecific ST and T wave abnormality Abnormal ECG Confirmed by JIMI RAGLAND, CALVIN ([id number]), content editor JOSH GABRIEL ([id number]) on 05/03/2018 4:12:48 PM Referred By: Confirmed By:CALVIN KRAUSE MD
[2018-05-03] MEDS: Haloperidol Lactate 5 MG/ML VIAL SLOW IVP PRN ×2 (18:34→22:21)
[2018-05-03] MEDS ORDERED: Acetaminophen 650 MG Suppository PR PRN (19:17)
[2018-05-03] MEDS ORDERED: diphenhydrAMINE 50 MG/ML VIAL IVP SCH (20:30)
[2018-05-03] MEDS: cefTRIAXone\\ROCEPHIN 2 GM in Sodium Chloride 0.9% 100 ML IVPB SCH (20:49)
[2018-05-03 22:18] LABS: Bilirubin Negative (Negative); Blood, Urine Large (Negative); Clarity CLEAR (Clear); Glucose, Urine (Dipstick) 250 mg/dL (Negative); Leukocyte Moderate (Negative); Nitrite Negative (Negative); Protein, Urine (Dipstick) Trace mg/dL (Neg-Trace); Specific Gravity, Urine 1.018 (1.002-1.036); Urobilinogen 0.2 mg/dL (0.2-1.0); pH, Urine 5.5 (5.0-9.0)
[2018-05-03 22:20] LABS: Bacteria/HPF None Seen HPF (None Seen); Hyaline Casts/LPF 4-6 HYALINE CAST LPF (0-3 Hyaline); Pathc Cast-AUWi Flag 1.16 (0-2.49); RBC/HPF GREATER THAN 50-TNTC HPF (0-3); Squamous Epithelial 0-3 HPF (0-3); WBC/HPF 21-50 HPF (0-3)
[2018-05-04] MEDS: Lorazepam 2 MG/ML VIAL SLOW IVP PRN ×4 (00:16→13:53)
[2018-05-04] MEDS ORDERED: diphenhydrAMINE 50 MG/ML VIAL IVP SCH ×2 (05:45→21:45)
[2018-05-04 07:30] LABS: #Eosinphils 0.3 thou/uL (0.0-0.7); #Lymphocytes 0.9 thou/uL (1.20-3.40); #Monocytes 1.3 thou/uL (0.11-0.59); #Neutrophils 13.2 thou/uL (1.40-6.50); %Basophils 0.2 % (0.0-1.0); %Eosinophils 1.7 % (0.0-10.0); %Lymphocytes 5.6 % (21.0-51.0); %Monocytes 8.5 % (0.0-10.0); Hemoglobin 10.1 g/dL (12.0-16.0); Mean Corpuscular HGB CONC 33.4 g/dL (32.0-36.0); Mean Corpuscular Hemoglobin 32.1 pg (27.0-31.0); Mean Corpuscular Volume 96.2 fL (78.0-98.0); Mean Platelet Volume 6.6 fL (7.4-10.4); Platelet Count 217 thou/uL (130-400); RBC Distribution Width 12.5 % (11.5-14.5); Red Blood Cell (RBC) Count 3.14 mill/uL (4.20-5.40); White Blood Cell (WBC) Count 15.8 thou/uL (4.8-10.8)
[2018-05-04 07:52] LABS: Anion Gap 12 mmol/L (10-20); BUN (Urea Nitrogen) 43 mg/dL (9.8-20.1); BUN/Creatinine Ratio 31.39; Calc. Creatinine Clearance 35 mL/min (70-130); Calcium 8.2 mg/dL (7.8-10.44); Carbon Dioxide 22 mmol/L (23-31); Chloride 106 mmol/L (98-107); Estimated GFR-MDRD 36; Glucose 148 mg/dL (83-110); Magnesium 1.9 mg/dL (1.6-2.6); Phosphorus 2.3 mg/dL (2.3-4.7); Potassium 3.8 mmol/L (3.5-5.1); Sodium 136 mmol/L (136-145)
[2018-05-04] MEDS ORDERED: cloNIDine 0.1mg/24 Hour PATCH TD SCH (09:00)
[2018-05-04] MEDS ORDERED: Meropenem 1 GM in Sodium Chloride 0.9% 100 ML IVPB SCH (09:00)
[2018-05-04] MEDS: D5 0.9% NS w/ 20 mEq KCl 1,000 ML IV SCH ×3 (09:05→17:45)
[2018-05-04] MEDS: Carvedilol 6.25 MG TAB PO SCH ×2 (09:33→17:11)
[2018-05-04] MEDS: Apixaban 2.5 MG TAB PO SCH ×2 (09:34→21:46)
[2018-05-04] MEDS: Polyethylene Glycol 3350 17 GM Packet PO SCH (09:35)
[2018-05-04] MEDS: Senokot S 8.6-50 MG TAB PO SCH ×2 (09:35→21:46)
[2018-05-04] MEDS: Haloperidol Lactate 5 MG/ML VIAL ONE (09:52)
[2018-05-04] MEDS: Famotidine/PF 20 mg/2ml Vial SLOW IVP SCH (09:58)
[2018-05-04] MEDS: MEROPENEM 1 GM/50 ML 1 GM in Premix Bag 1 BAG IVPB SCH ×2 (10:44→18:16)
[2018-05-04] MEDS: Haloperidol Lactate 5 MG/ML VIAL SLOW IVP PRN ×3 (10:44→21:45)
[2018-05-04] MEDS: Fentanyl 100 MCG/2 ML VIAL SLOW IVP PRN (11:53)
--- NOTE | 2018-05-04 12:59 | RAD ---
AP VIEW ABDOMEN: Date: 05/04/18 HISTORY: Abdominal pain. FINDINGS: AP view of abdomen is obtained. Radiograph is suboptimal due to patient motion. There is extensive mo tion artifact which significantly degrades the quality of this exam. IMPRESSION: Suboptimal radiograph of abdomen due to patient motion. POS: [facility]
--- NOTE | 2018-05-04 13:10 | PDOC.PN ---
- Subjective Encounter Start Date: 05/04/18 Encounter Start Time: 09:00 -: non-verbal Patient seen and examined for Encephalopathy. Remains agitated/confused. Overnight events noted - Objective Resuscitation Status: Resuscitation Status DNR:Do Not Resuscitate MAR Reviewed: Yes Vital Signs & Weight: Vital Signs (12 hours) Temp Pulse Resp BP BP BP Pulse Ox 05/04/18 12:00 98.6 F 108 H 16 140/93 H 97 05/04/18 11:58 98.6 F 103 H 36 H 140/93 H 97 05/04/18 09:33 122/70 05/04/18 08:09 91 20 05/04/18 08:00 97.8 F 98 14 110/63 97 05/04/18 04:17 91 26 H 97 05/04/18 04:00 97.5 F L 85 22 H 151/86 H 98 Weight Admit Weight 174 lb 1.6 oz Weight 174 lb 1.6 oz I&O: 05/03/18 05/04/18 05/05/18 06:59 06:59 06:59 Intake Total 1632 1100 Output Total 175 950 Balance 1457 150 Result Diagrams: 05/06/18 04:46 05/06/18 04:46 Additional Labs: Accuchecks 05/04/18 05/04/18 05/03/18 11:43 06:06 22:44 POC Glucose 152 H 144 H 148 H 05/03/18 13:33 POC Glucose 146 H Phys Exam - Physical Examination Encephalopathic Respiratory: no wheezing, no rhonchi Cardiovascular: RRR, no rub Gastrointestinal: soft, no distention, positive bowel sounds Dx/Plan - Plan DVT proph w/SCDs IMPRESSION: 1. Toxic Metabolic Encephalopathy - multifactorial 2. Sepsis with acute organ dysfunction due to E coli UTI/E coli E coli bacteremia 3. Afib with RVR - rate controlled, on Eliquis/Coreg 4. Hyponatremia - improving 5. 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 Obesity BMI 34/ Rt diaphragm paralysis/ Impaired glucose tolerance - A1c 5.9 / Transient resp failure - resolved/DNR /Other issues per previous notes PLAN: Cont Haldol/Ativan for agitation DNR - confirmed with both daughters Change Ceftriaxone to Meropenem for possible ESBL Enema KUB Add Clonidine patch Cont current meds as below Cont Nebs/Cont pulse ox monitoring Cont IVF - increase rate AM labs Urine culture pending Microbiology 05/03/18 08:34 Venous blood - Left Hand Blood Culture - Preliminary Specimen has been received and culture in progress. No Growth to date. 05/03/18 07:43 Venous blood - Left Hand Blood Culture - Preliminary Specimen has been received and culture in progress. No Growth to date. Review of Systems - Review of Systems Respiratory: negative: Cough, Dry, Shortness of Breath, Hemoptysis, SOB with Excertion, Pleuritic Pain, Sputum, Wheezing Cardiovascular: negative: chest pain, palpitations, orthopnea, paroxysmal nocturnal dyspnea, edema, light headedness, other - Medications/Allergies Allergies/Adverse Reactions: Allergies Allergy/AdvReac Type Severity Reaction Status Date / Time benzalkonium chloride Allergy Verified 04/29/18 07:49 [From Neosporin Julian To Go] pramoxine Allergy Verified 04/29/18 07:49 [From Neosporin Julian To Go] Medications: Current Medications Acetaminophen (Tylenol) 1,000 mg PO Q6H PRN PRN Reason: Headache/Fever or Mild Pain Acetaminophen (Tylenol) 650 mg [place] Q4H PRN PRN Reason: Headache/Fever or Pain Albuterol/Ipratropium (Duoneb) 3 ml NEB Q4H PRN PRN Reason: SOB &/or Wheezing Albuterol/Ipratropium (Duoneb) 3 ml NEB [id number] [facility] Last Admin: 05/04/18 12:00 Dose: 3 ml Apixaban (Eliquis) 2.5 mg PO BID [facility] Last Admin: 05/04/18 09:34 Dose: Not Given Carvedilol (Coreg) 6.25 mg PO BID-[facility] Last Admin: 05/04/18 09:33 Dose: Not Given Cholecalciferol (Vitamin D3) 1,000 units PO DAILY [facility] Last Admin: 05/04/18 09:34 Dose: Not Given Clonidine (Ndydaula-Mrz-8 Patch) 0.1 mg TD Q7DAYS [facility] Last Admin: 05/04/18 09:58 Dose: 0.1 mg Famotidine (Pepcid) 20 mg SLOW IVP DAILY [facility] Last Admin: 05/04/18 09:58 Dose: 20 mg Fentanyl (Sublimaze) 25 mcg SLOW IVP Q4H PRN PRN Reason: Severe Pain (7-10) Last Admin: 05/04/18 11:53 Dose: 25 mcg Haloperidol Lactate (Haldol) 0.5 mg SLOW IVP Q4H PRN PRN Reason: Agitation Last Admin: 05/04/18 10:44 Dose: 0.5 mg Potassium Chloride/Dextrose/Sod Cl (D5 0.9% Ns W/ 20 Meq Kcl) 1,000 mls @ 125 mls/hr IV .Q8H [facility] Last Admin: 05/04/18 09:34 Dose: Not Given Meropenem 1 gm/ Device 50 mls @ 100 mls/hr IVPB Q8H [facility] Last Admin: 05/04/18 10:44 Dose: 50 mls Lorazepam (Ativan) 0.25 mg SLOW IVP Q4H PRN PRN Reason: Anxiety/Agitation Last Admin: 05/04/18 09:03 Dose: 0.25 mg Magnesium Hydroxide (Milk Of Magnesium) 30 ml PO DAILYPRN PRN PRN Reason: Constipation Last Admin: 05/03/18 04:18 Dose: 30 ml Miscellaneous Medication (Pharmacy To Dose) 1 each IVPB ASDIR [facility] Ondansetron HCl (Zofran Odt) 4 mg PO Q6H PRN PRN Reason: Nausea/Vomiting Last Admin: 04/29/18 15:28 Dose: 4 mg Ondansetron HCl (Zofran) 4 mg IVP Q6H PRN PRN Reason: Nausea/Vomiting Last Admin: 05/03/18 04:39 Dose: 4 mg Polyethylene Glycol (Miralax) 17 gm PO DAILY [facility] Last Admin: 05/04/18 09:35 Dose: Not Given Senna/Docusate Sodium (Senokot S) 1 tab PO BID [facility] Last Admin: 05/04/18 09:35 Dose: Not Given Sodium Chloride (Flush - Normal Saline) 10 ml IVF Q12HR [facility] Last Admin: 05/04/18 09:35 Dose: Not Given Sodium Chloride (Flush - Normal Saline) 10 ml IVF PRN PRN PRN Reason: Saline Flush Last Admin: 05/03/18 04:39 Dose: 10 ml Tramadol HCl (Ultram) 50 mg PO DAILY PRN PRN Reason: Pain
[2018-05-04] MEDS ORDERED: Bisacodyl 10 MG SUPP PR SCH (17:30)
[2018-05-04] MEDS: Metoprolol Tartrate 5 MG/5 ML VIAL IVP SCH (18:18)
[2018-05-04] MEDS ORDERED: diphenhydrAMINE 50 MG/ML VIAL IM SCH (21:30)
[2018-05-05] MEDS: Lorazepam 2 MG/ML VIAL SLOW IVP PRN ×4 (00:05→20:56)
[2018-05-05] MEDS: Fentanyl 100 MCG/2 ML VIAL SLOW IVP PRN ×6 (00:09→22:28)
[2018-05-05] MEDS: Metoprolol Tartrate 5 MG/5 ML VIAL IVP SCH ×5 (00:57→20:59)
[2018-05-05 01:27] LABS: #Eosinphils 0.3 thou/uL (0.0-0.7); #Lymphocytes 0.9 thou/uL (1.20-3.40); %Basophils 0.1 % (0.0-1.0); %Lymphocytes 5.4 % (21.0-51.0); %Monocytes 6.3 % (0.0-10.0); %Neutrophils 86.3 % (42.0-75.0); Hemoglobin 9.5 g/dL (12.0-16.0); Mean Corpuscular HGB CONC 32.5 g/dL (32.0-36.0); Mean Corpuscular Volume 98.2 fL (78.0-98.0); Platelet Count 219 thou/uL (130-400); RBC Distribution Width 12.7 % (11.5-14.5); Red Blood Cell (RBC) Count 2.96 mill/uL (4.20-5.40); White Blood Cell (WBC) Count 16.2 thou/uL (4.8-10.8)
[2018-05-05 01:35] LABS: INR-International Normal Ratio 1.2; PTT 29.3 SEC (22.9-36.1); Prothrombin Time 15.3 SEC (12.0-14.7)
[2018-05-05] MEDS: MEROPENEM 1 GM/50 ML 1 GM in Premix Bag 1 BAG IVPB SCH ×3 (01:45→20:59)
[2018-05-05 01:49] LABS: ALT (SGPT) 27 U/L (8-55); AST (SGOT) 23 U/L (5-34); Albumin 2.9 g/dL (3.4-4.8); Alkaline Phosphatase 46 U/L (40-150); Anion Gap 10 mmol/L (10-20); BUN (Urea Nitrogen) 34 mg/dL (9.8-20.1); Bilirubin, Total 0.3 mg/dL (0.2-1.2); Calc. Creatinine Clearance 36 mL/min (70-130); Calcium 8.3 mg/dL (7.8-10.44); Carbon Dioxide 22 mmol/L (23-31); Chloride 111 mmol/L (98-107); Estimated GFR-MDRD 38; Globulin 2.2 g/dL (2.4-3.5); Glucose 193 mg/dL (83-110); Magnesium 1.8 mg/dL (1.6-2.6); Potassium 4.2 mmol/L (3.5-5.1); Protein, Total 5.1 g/dL (6.0-8.3); Sodium 139 mmol/L (136-145)
[2018-05-05] MEDS: D5 0.9% NS w/ 20 mEq KCl 1,000 ML IV SCH ×3 (05:50→15:41)
[2018-05-05] MEDS ORDERED: Labetalol HCl 100 MG/20 ML VIAL SLOW IVP PRN (07:44)
[2018-05-05] MEDS: Polyethylene Glycol 3350 17 GM Packet PO SCH (08:48)
[2018-05-05] MEDS: Bisacodyl 10 MG SUPP PR SCH ×2 (08:48→09:32)
[2018-05-05] MEDS: Carvedilol 6.25 MG TAB PO SCH (08:49)
[2018-05-05] MEDS: Senokot S 8.6-50 MG TAB PO SCH ×2 (08:49→21:00)
[2018-05-05] MEDS: Apixaban 2.5 MG TAB PO SCH ×2 (08:49→21:00)
[2018-05-05] MEDS: Famotidine/PF 20 mg/2ml Vial SLOW IVP SCH (09:33)
--- NOTE | 2018-05-05 10:21 | CT ---
CT BRAIN NONCONTRAST: HISTORY: An 88-year-old female on Eliquis anticoagulation therapy with altered mental status. FINDINGS: There is no midline shift or any other mass effect. There is no evidence of acute intracranial hemor rhage, large cortical infarct, obstructive hydrocephalus, or extraaxial fluid collection. The calvar ium is intact. There is diffuse parenchymal volume loss. There are low attenuation areas in the whi te matter. These are nonspecific, but in a patient of this age, they are probably chronic ischemic w josh matter changes due to microvascular atherosclerosis. IMPRESSION: 1) No acute intracranial findings. 2) Involutional changes and chronic ischemic white matter changes. jn [] POS: [facility]
--- NOTE | 2018-05-05 10:41 | PRG ---
DATE OF SERVICE: 05/05/2018 The patient is in respiratory extremis. She is difficult to arouse. Her daughter is at the bedside. PHYSICAL EXAMINATION: VITAL SIGNS: Temperature 96.3, pulse 123, respirations 24, O2 sat 91% on Ventimask, blood pressure 1 36/83. GENERAL: She is obtunded. HEENT: Unremarkable. NECK: No JVD. LUNGS: Coarse breath sounds. CARDIAC: S1 and S2, tachycardic. ABDOMEN: Soft. EXTREMITIES: Generalized edema throughout. Head CT was performed earlier which does not show any acute findings by my read. LABORATORY DATA: White blood cell count 16.2, hematocrit 29.1, platelet count 219. Sodium 139, pota ssium 4.2, BUN 34, creatinine 1.3, glucose 193. ASSESSMENT: 1. Encephalopathy. 2. End-stage medical problems. PLAN: I would focus on comfort care as the patient looks unlikely to improve.
--- NOTE | 2018-05-05 15:24 | PDOC.PN ---
- Subjective Encounter Start Date: 05/05/18 Encounter Start Time: 09:15 Patient seen and examined for Encephalopathy. No significant change in mentation. Overnight events noted - Objective Resuscitation Status: Resuscitation Status DNR:Do Not Resuscitate MAR Reviewed: Yes Vital Signs & Weight: Vital Signs (12 hours) Temp Pulse Resp BP BP BP BP 05/05/18 15:12 118 H 28 H 05/05/18 14:38 101 H 172/105 H 05/05/18 14:21 126 H 236/136 H 05/05/18 11:25 96.7 F L 131 H 28 H 169/105 H 05/05/18 11:03 125 H 28 H 05/05/18 08:41 123 H 136/83 05/05/18 08:09 05/05/18 08:07 123 H 24 H 05/05/18 07:15 96.3 F L 114 H 25 H 217/115 H 05/05/18 03:54 97.0 F L 109 H 24 H 168/116 H Pulse Ox 05/05/18 15:12 98 05/05/18 14:38 05/05/18 14:21 05/05/18 11:25 96 05/05/18 11:03 91 L 05/05/18 08:41 05/05/18 08:09 91 L 05/05/18 08:07 91 L 05/05/18 07:15 99 05/05/18 03:54 98 Weight Admit Weight 174 lb 1.6 oz Weight 174 lb 1.6 oz I&O: 05/04/18 05/05/18 05/06/18 06:59 06:59 06:59 Intake Total 1100 887 620 Output Total 950 800 Balance 150 87 620 Result Diagrams: 05/06/18 04:46 05/06/18 04:46 Additional Labs: Accuchecks 05/05/18 05/05/18 05/04/18 12:25 05:58 23:47 POC Glucose 204 H 177 H 189 H 05/04/18 18:41 POC Glucose 147 H Radiology Reviewed by me: Yes (KUB - no SBO) EKG Reviewed by me: Yes (Tele Afib) Phys Exam - Physical Examination Encephalopathic/ Not following commands Respiratory: no wheezing, no rhonchi Dec AE at Rt base Cardiovascular: no rub, irregular Gastrointestinal: soft, positive bowel sounds Musculoskeletal: no edema Dx/Plan - Plan DVT proph w/SCDs IMPRESSION: 1. Toxic Metabolic Encephalopathy - multifactorial 2. Sepsis with acute organ dysfunction due to E coli UTI/E coli bacteremia 3. Afib with RVR - rate uncontrolled, Not taking PO Eliquis/Coreg 4. Hyponatremia - improving 5. 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 Obesity BMI 34/ Rt diaphragm paralysis/ Impaired glucose tolerance - A1c 5.9 / Transient resp failure - resolved/DNR /Other issues per previous notes PLAN: Cont Haldol/Ativan for agitation Cont Meropenem Cont Clonidine patch Increase IV Metoprolol dose Cont current meds as below Cont Nebs/Cont pulse ox monitoring Cont IVF - reduce rate due to uncontrolled HTN AM labs Review of Systems - Review of Systems Other: Cannot obtain due to current cognition. - Medications/Allergies Allergies/Adverse Reactions: Allergies Allergy/AdvReac Type Severity Reaction Status Date / Time benzalkonium chloride Allergy Verified 04/29/18 07:49 [From Neosporin Julian To Go] pramoxine Allergy Verified 04/29/18 07:49 [From Neosporin Julian To Go] Medications: Current Medications Acetaminophen (Tylenol) 1,000 mg PO Q6H PRN PRN Reason: Headache/Fever or Mild Pain Acetaminophen (Tylenol) 650 mg [place] Q4H PRN PRN Reason: Headache/Fever or Pain Albuterol/Ipratropium (Duoneb) 3 ml NEB Q4H PRN PRN Reason: SOB &/or Wheezing Albuterol/Ipratropium (Duoneb) 3 ml NEB [id number] [facility] Last Admin: 05/05/18 15:12 Dose: 3 ml Apixaban (Eliquis) 2.5 mg PO BID [facility] Last Admin: 05/05/18 08:49 Dose: Not Given Bisacodyl (Dulcolax) 10 mg [place] DAILY [facility] Last Admin: 05/05/18 09:32 Dose: 10 mg Carvedilol (Coreg) 6.25 mg PO BID[facility] Last Admin: 05/05/18 08:49 Dose: Not Given Cholecalciferol (Vitamin D3) 1,000 units PO DAILY [facility] Last Admin: 05/05/18 08:48 Dose: Not Given Clonidine (Slyjiske-Zil-0 Patch) 0.1 mg TD Q7DAYS [facility] Last Admin: 05/04/18 09:58 Dose: 0.1 mg Famotidine (Pepcid) 20 mg SLOW IVP DAILY [facility] Last Admin: 05/05/18 09:33 Dose: 20 mg Fentanyl (Sublimaze) 25 mcg SLOW IVP Q4H PRN PRN Reason: Severe Pain (7-10) Last Admin: 05/05/18 11:16 Dose: 25 mcg Haloperidol Lactate (Haldol) 0.5 mg SLOW IVP Q4H PRN PRN Reason: Agitation Last Admin: 05/04/18 21:45 Dose: 0.5 mg Meropenem 1 gm/ Device 50 mls @ 100 mls/hr IVPB 1000,2200 [facility] Potassium Chloride/Dextrose/Sod Cl (D5 0.9% Ns W/ 20 Meq Kcl) 1,000 mls @ 50 mls/hr IV .Q20H [facility] Last Admin: 05/05/18 14:25 Dose: 1,000 mls Labetalol HCl (Normodyne) 10 mg SLOW IVP Q4H PRN PRN Reason: Systolic BP > 180 Lorazepam (Ativan) 0.25 mg SLOW IVP Q4H PRN PRN Reason: Anxiety/Agitation Last Admin: 05/05/18 14:46 Dose: 0.25 mg Magnesium Hydroxide (Milk Of Magnesium) 30 ml PO DAILYPRN PRN PRN Reason: Constipation Last Admin: 05/03/18 04:18 Dose: 30 ml Metoprolol Tartrate (Lopressor) 5 mg IVP 0300,0900,1500,2100 [facility] Last Admin: 05/05/18 14:25 Dose: 5 mg Miscellaneous Medication (Pharmacy To Dose) 1 each IVPB ASDIR [facility] Ondansetron HCl (Zofran Odt) 4 mg PO Q6H PRN PRN Reason: Nausea/Vomiting Last Admin: 04/29/18 15:28 Dose: 4 mg Ondansetron HCl (Zofran) 4 mg IVP Q6H PRN PRN Reason: Nausea/Vomiting Last Admin: 05/03/18 04:39 Dose: 4 mg Polyethylene Glycol (Miralax) 17 gm PO DAILY [facility] Last Admin: 05/05/18 08:48 Dose: Not Given Senna/Docusate Sodium (Senokot S) 1 tab PO BID [facility] Last Admin: 05/05/18 08:49 Dose: Not Given Sodium Chloride (Flush - Normal Saline) 10 ml IVF Q12HR [facility] Last Admin: 05/05/18 08:46 Dose: 10 ml Sodium Chloride (Flush - Normal Saline) 10 ml IVF PRN PRN PRN Reason: Saline Flush Last Admin: 05/04/18 18:19 Dose: 10 ml Tramadol HCl (Ultram) 50 mg PO DAILY PRN PRN Reason: Pain
[2018-05-05] MEDS ORDERED: hydrALAZINE 20 MG/ML VIAL SLOW IVP PRN (15:25)
[2018-05-05] MEDS ORDERED: Fentanyl 100 MCG/2 ML VIAL SLOW IVP SCH (17:45)
[2018-05-06] MEDS: Lorazepam 2 MG/ML VIAL SLOW IVP PRN ×2 (01:29→13:05)
[2018-05-06] MEDS: Fentanyl 100 MCG/2 ML VIAL SLOW IVP PRN (04:19)
[2018-05-06] MEDS: Metoprolol Tartrate 5 MG/5 ML VIAL IVP SCH ×3 (04:20→14:38)
[2018-05-06 05:38] LABS: Anion Gap 13 mmol/L (10-20); BUN (Urea Nitrogen) 28 mg/dL (9.8-20.1); Calc. Creatinine Clearance 39 mL/min (70-130); Calcium 8.7 mg/dL (7.8-10.44); Carbon Dioxide 19 mmol/L (23-31); Chloride 111 mmol/L (98-107); Estimated GFR-MDRD 39; Glucose 166 mg/dL (83-110); Potassium 4.9 mmol/L (3.5-5.1); Sodium 138 mmol/L (136-145)
[2018-05-06 06:24] LABS: Band 9 % (5-11); Hemoglobin 9.9 g/dL (12.0-16.0); MDiff Complete? YES; Mean Corpuscular HGB CONC 30.4 g/dL (32.0-36.0); Mean Corpuscular Hemoglobin 30.4 pg (27.0-31.0); Mean Platelet Volume 7.8 fL (7.4-10.4); Monocytes 4 % (0-10); Myelocyte 2 % (0-0); Neutrophil 85 % (42-75); Platelet Count 225 thou/uL (130-400); RBC Distribution Width 13.1 % (11.5-14.5); Red Blood Cell (RBC) Count 3.25 mill/uL (4.20-5.40); White Blood Cell (WBC) Count 17.6 thou/uL (4.8-10.8)
[2018-05-06] MEDS: Apixaban 2.5 MG TAB PO SCH (09:17)
[2018-05-06] MEDS: Polyethylene Glycol 3350 17 GM Packet PO SCH (09:17)
[2018-05-06] MEDS: Senokot S 8.6-50 MG TAB PO SCH (09:18)
[2018-05-06] MEDS: Famotidine/PF 20 mg/2ml Vial SLOW IVP SCH (09:20)
--- NOTE | 2018-05-06 09:20 | PRG ---
DATE OF SERVICE: 05/06/2018 SUBJECTIVE: Ms. Waters looks worse. She is very tachypneic and struggling. OBJECTIVE: VITAL SIGNS: Her temperature is 96.8, pulse 102, respirations 20, O2 sat 95% on a Ventimask. HEENT: Unremarkable. NECK: No JVD. LUNGS: Tachypnea, poor air movement. CARDIOVASCULAR: S1, S2, tachycardic. ABDOMEN: Soft. EXTREMITIES: No edema. LABORATORY DATA: Sodium 130, potassium 4.9, chloride 111, CO2 19, BUN 28, creatinine 1.2, glucose 16 6. White blood cell count 17.6, hematocrit 32.5, platelet count 225. ASSESSMENT: 1. Sepsis syndrome. 2. Failure to thrive. 3. Advanced age. RECOMMENDATION: I firmly believe that her chances of surviving this are dismal. Again, I would focu s on comfort care and not give the family any type of reassurance that the patient is going to make i t through this.
[2018-05-06] MEDS: Bisacodyl 10 MG SUPP PR SCH (09:22)
[2018-05-06] MEDS: D5 0.9% NS w/ 20 mEq KCl 1,000 ML IV SCH (10:06)
[2018-05-06] MEDS: MEROPENEM 1 GM/50 ML 1 GM in Premix Bag 1 BAG IVPB SCH (10:09)
[2018-05-06 13:01] VITALS: BMI 35.3
[2018-05-06 16:06] VITALS: TEMP 97.9
[2018-05-06 16:57] VITALS: BP 159/93
--- NOTE | 2018-05-06 17:06 | DIS ---
DATE OF DISCHARGE: 05/06/2018 DISCHARGE DISPOSITION: Inpatient hospice. DISCHARGE MEDICATIONS: Per hospice. The patient was seen and examined on the day of discharge. BRIEF HOSPITAL COURSE: The patient is an 88-year-old female who presented to the hospital on 018 with generalized weakness. Her workup was consistent with sepsis secondary to Escherichia coli u rinary tract infection with Escherichia coli bacteremia. Blood cultures showed E. coli which was marroquin sensitive. She also was found to have atrial fibrillation with rapid ventricular response. The chanel ent was evaluated by Cardiology. Her rate later improved with oral beta blockers. Anticoagulation w as initiated. Echocardiogram showed left ventricular ejection fraction of 50%-55% with moderate to s evere tricuspid regurgitation. The patient was also seen by Infectious Disease as well as critical c are during this hospital stay. She developed transient respiratory failure requiring noninvasive pos itive pressure ventilation in the intermediate care unit. She was then transferred to the telemetry floor. She was doing well until this point. A Smith catheter was removed and she was transitioned t o medical floor. On the medical floor, she became encephalopathic. Repeat blood cultures have done and negative. CT brain was negative. Chest x-ray was negative for new infiltrate. The etiology for encephalopathy ap peared unclear. WBC remained persistently elevated. The patient was reevaluated by Infectious Disea Dr. Ashley sandy. Due to worsening overall condition, family decided on inpatient hospice. She will be transitioned to inpatient hospice later today. FINAL DIAGNOSES: 1. Toxic metabolic encephalopathy, multifactorial. 2. Sepsis with acute organ dysfunction secondary to Escherichia coli bacteremia as well as Escherich ia coli urinary tract infection. 3. Atrial fibrillation with rapid ventricular response. 4. Hyponatremia. 5. 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 Her creatinine on admission was 2.02. [facility] creatinine this hospitalization was 2.27, at discharge was 1.28. 6. Obesity with a BMI of 34. 7. 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 8. Impaired glucose tolerance with A1c 5.9. 9. Transient respiratory failure, resolved. 10. Code status at the time of discharge was do not resuscitate. 11. Chronic anemia. Plan of care was discussed with the patient and the family. Family stated understanding.
== END 2018-05-06 18:00 | disposition short-term general hospital (02) | DRG 871 ==
LOC: ERS 11:53 → 2NO 18:17 → IMCU/EMU 04-29 11:32 → 2NO 04-30 10:52 → ONC 05-02 10:30 → 2NO 05-04 16:05
PROVIDERS: ADMIT Family Medicine; ATTEND Family Medicine
DX: A41.51 Sepsis due to Escherichia coli [E. coli] (principal); J18.9 Pneumonia, unspecified organism; J96.01 Acute respiratory failure with hypoxia; N17.0 Acute kidney failure with tubular necrosis; G92 Toxic encephalopathy; N18.4 Chronic kidney disease, stage 4 (severe); N17.9 Acute kidney failure, unspecified; E87.1 Hypo-osmolality and hyponatremia; N10 Acute pyelonephritis; I13.0 Hypertensive heart and chronic kidney disease with heart failure and stage 1 through stage 4 chronic kidney disease, or unspecified chronic kidney disease; Z66 Do not resuscitate; I48.91 Unspecified atrial fibrillation; J98.6 Disorders of diaphragm; Z85.3 Personal history of malignant neoplasm of breast; M10.9 Gout, unspecified; E66.9 Obesity, unspecified; Z68.34 Body mass index [BMI] 34.0-34.9, adult; E88.09 Other disorders of plasma-protein metabolism, not elsewhere classified; D64.9 Anemia, unspecified; Z79.899 Other long term (current) drug therapy; F41.9 Anxiety disorder, unspecified; F32.9 Major depressive disorder, single episode, unspecified; R62.7 Adult failure to thrive; Z79.891 Long term (current) use of opiate analgesic; Z88.8 Allergy status to other drugs, medicaments and biological substances; I50.9 Heart failure, unspecified; F03.90 Unspecified dementia, unspecified severity, without behavioral disturbance, psychotic disturbance, mood disturbance, and anxiety
CPT/HCPCS: 36415; 36416; 70450; 71045; 71250; 74018; 74176; 76770; 80048; 80053; 80069; 81001; 82550; 82553; 82805; 83036; 83605; 83735; 83880; 84443; 84484; 85007; 85025; 85027; 85610; 85730; 87040; 87077; 87086; 87149; 87186; 93005; 93010; 93306; 94640; 94660; 94760; 96361; 96372; 96374; A4216; G8978-GP-CL; G8979-GP-CJ; J0456; J0696; J1200; J1630; J1650; J1940; J1956; J2060; J2185; J2405; J2920; J2930; J3010; J7050; J7620; Q0162; S0028